=== PATIENT | male | born 1950 | race Caucasian/White ===

== ENCOUNTER → 2021-08-26 07:52 | Outpatient (BNVA) | payer MEDICARE, SELFPAY | PROVIDERS: PCP Internal Medicine; Visit Provider Psychiatry & Neurology Neurology | DX: G20 Parkinson's disease (principal); G47.52 REM sleep behavior disorder; F09 Unspecified mental disorder due to known physiological condition; R13.10 Dysphagia, unspecified | CPT/HCPCS: 99212 ==

== ENCOUNTER 2021-11-28 14:15 | Outpatient (REF) | payer MEDICARE, SELFPAY ==
--- NOTE | ~2021-11-28 | FL_ITS ---
EXAMINATION: FL MODIFIED BARIUM SWALLOW CLINICAL INFORMATION: Recently diagnosed Parkinson's disease with dysphagia. COMPARISON: None TECHNIQUE: Modified barium swallow was performed in lateral fluoroscopy view of the following oral administration of various consistencies of barium by the speech therapist. FINDINGS: On oral administration of thin barium, there is a single episode of laryngeal penetration but no aspiration seen. No retention in valleculae or piriform sinuses. On oral administration of pudding, ground chicken and barium-coated saltine cracker, there is normal propagation of bolus from the oral cavity through the pharynx into the cervical esophagus. No retention of solid food seen in the valleculae or piriform sinuses. No laryngeal penetration or aspiration. FLUOROSCOPY TIME: 1.2 minutes DOSE AREA PRODUCT: 0.861 uGy-m2 (microgray-meter squared) FL/FL barium swallow modified IMPRESSION: Single episode of laryngeal penetration on administration of thin barium. Otherwise, there was normal modified barium swallow exam with other consistencies of food coated with barium.
--- NOTE | 2021-11-29 15:32 | MHC.SL.IMP ---
Date of Plan of Treatment: 11/28/21 Onset of Symptoms/Illness: 11/29/19 Date Treatment Started: 11/28/21 Admitting Diagnosis: Parkinson's Disease Primary Speech & Language Diagnosis: R13.12 Oropharyngeal Phase Dysphagia Reason for Today's Visit: 10680 Modified Barium Swallow Study Pre-evaluation Dietary Consistencies: Regular Pre-evaluation Liquid Consistency: Thin Pre-evaluation Medication Administration: Whole with Liquid Medical History: Modified Barium Swallow Study Fluoroscopic Evaluation of Swallowing Function CPT Code 31191 Evaluation Year: 2021 Reason for Study: Patient reports choking on saliva and liquids. Referring Physician: Suzan Fish MD Evaluating Clinician: Jacinta Ware MA, CCC-INFORMATION SECURITY CONSULTANT Study Number: 1 Patient Name: Hipolito Thompson Status: Outpatient, Ambulatory Age: 71 Gender: Male MEDICAL HISTORY: Parkinson's Disease Allergic rhinitis Back pain Basal cell carcinoma Cognitive disorder Colonic polyp Dysphagia Hyperlipidemia REM behavioral disorder Current (pre-evaluation) Intake/Diet: Route: PO Diet Grade: Regular Liquid Consistencies: Thin Pre-Study Functional Oral Intake Scale (FOIS): 7- Total oral intake with no restrictions Pain: Chronic/Ongoing reported at time of study, Throat, rated 3 on scale 0-10 SUBJECTIVE: Patient is a 71 year old male who was referred for a modified barium swallow study by Suzan Fish MD of [facility] in [place], [place]. Patient attended this exam unaccompanied. Patient reports he was officially diagnosed with Parkinson?s Disease 3-4 months ago, though he has been on medication for 2 years. Patient noticed onset of dysphagia 2 years ago when he would choke on saliva and liquids. Patient also described chest pain when food would ?stick partway down for 30-40 seconds.? Patient rated the pain 2 or 3 on a scale 0 to 10, which would subside when the food went down. Patient reported that he noticed that his medications for Parkinson?s Disease seemed to have reduced these symptoms. He reports that these symptoms occur even less frequently after having COVID 2 months ago. Patient reported having a barium swallow study done 15-20 years ago which showed ?hang up of food.? Oral Motor Exam Facial Symmetry: Symmetrical Mouth Occlusion: Normal Oral-Facial Teeth Characteristics: Intact/Normal Oral-Facial Lip Pucker Description: Normal Oral-Facial Smile (Lips) Description: Normal Oral-Facial Puff Cheeks Description: Normal Tongue Size: Normal Tongue Excursion Description: Normal Tongue Range of Movement Description: Normal Tongue Speed of Movement Description: Normal Tongue Strength of Movement (against opposing pressure): Normal Tongue Movement Characteristics: Normal/Absent Is patient able to manage secretions?: Yes Food and Liquid Trials: Oral Impairment: Lip Closure: Did not test Oral Impairment: Tongue Control During Bolus Hold: 0=Cohesive bolus between tongue to palatal seal Oral Impairment: Bolus Preparation/Mastication: 0=Timely and efficient chewing and mashing Oral Impairment: Bolus Transport/Lingual Motion: 1= Delayed initiation of tongue motion Oral Impairment: Oral Residue: 1=Trace residue lining oral structures Oral Impairment:Initiation of Pharyngeal Swallow: 1=Bolus head in valleculae Pharyngeal Impairment: Soft Palate Elevation: 0=No bolus between soft palate (SP)/pharyngeal wall (PW) Pharyngeal Impairment: Laryngeal Elevation: 0=Complete superior movement of thyroid cartilage (see description) Pharyngeal Impairment: Anterior Hyoid Excursion: 0=Complete anterior movement Pharyngeal Impairment: Epiglottic Movement: 0=Complete inversion Pharyngeal Impairment: Laryngeal Vestibular Closure:: 1=Incomplete: narrow column air/contrast in laryngeal vestibule Pharyngeal Impairment: Pharyngeal Stripping Wave: 0=Present: complete Pharyngeal Impairment: Pharyngeal Contraction: Did not test Pharyngeal Impairment: Pharyngoesophageal Segment Openin=Complete distension and complete duration: no obstruction of flow Pharyngeal Impairment: Tongue Base (TB) Retraction: 2=Narrow column of contrast/air between TB and posterior PW Pharyngeal Impairment: Pharyngeal Residue: 1=Trace residue within or on pharyngeal structures Pharyngeal Impairment: Esophageal Clearance Upright Position: Did not test Impressions and Recommendations Clinical Observations: OBJECTIVE: Time-out: performed at 02:45 Evaluation Start: 02:30; Stop: 02:40 Patient Positioning: Standing Viewing Planes: LATERAL ONLY Contrast: MBSImP? Standardized Protocol using commercially prepared, standardized Barium viscosities, including: Varibar? THIN LIQUID (40% w/v, <15 cps) , Varibar? NECTAR (40% w/v, <150-450 cps) , 1/2 Shortbread Cookie (1 x1 x.25 ) MBSImP ID: [id number] MBSImP Results: Lip closure for intraoral bolus containment could not be assessed due to logistical reasons not related to physiologic impairment. Tongue control during bolus hold maintained a cohesive bolus held between tongue to palate seal. Bolus preparation and mastication resulted in timely and efficient chewing and mashing. Bolus transport/lingual motion demonstrated delayed initiation of tongue motion. Oral residue was a trace, lining oral structures. Initiation of the pharyngeal swallow occurred when the bolus head was in the valleculae. Soft palate elevation resulted in no bolus between the soft palate and the pharyngeal wall. Laryngeal elevation demonstrated complete superior movement of the thyroid cartilage with complete approximation of the arytenoids to the epiglottic petiole. Anterior hyoid excursion demonstrated complete anterior movement. Epiglottic movement resulted in complete inversion. Laryngeal vestibular closure was incomplete, with a narrow column of air/contrast noted within the laryngeal vestibule at the height of the swallow. Pharyngeal stripping wave was present and complete. Pharyngeal contraction could not be determined due to logistical reasons not related to physiologic impairment. Pharyngoesophageal segment opening was completely distended for complete duration with no obstruction of bolus flow. Tongue base retraction allowed a narrow column of contrast or air between the retracted tongue base and the posterior pharyngeal wall. Pharyngeal residue was a trace within or on pharyngeal structures. Esophageal clearance in the upright position could not be assessed due to logistical reasons not related to physiologic impairment. Oral Impairment Score: 2 (absence of score, component 1) Pharyngeal Impairment Score: 3 (absence of score, component 13) Esophageal Impairment Score: --- (absence of score, component 17) Laryngeal Penetration and Aspiration: Neither penetration nor aspiration was observed in today's study with [place]-thick. Penetration was observed in today's study. Thin Contrast entered the airway, remained above the vocal folds, and was ejected from the airway. ASSESSMENT: Clinician Assessment: This exam was conducted by a multidisciplinary team, which included a speech pathologist, radiologist, and blood bank technician. Patient was standing for lateral view. Patient trialed the following liquid and solid consistencies: thin liquid barium by cup, nectar thick liquid barium by cup, pureed solid (mixture applesauce with barium paste), ground solid (mixture chicken salad with barium paste), and regular solid (Bailey Doone cookie coated with barium paste). Tongue control was within functional limits. Patient maintained cohesive bolus between tongue to palatal seal when instructed for bolus hold. There was no premature posterior escape of bolus. Mastication was timely and efficient. Trace lingual residue subsequently cleared. Posterior lingual motion for bolus transport was mildly delayed. Pharyngeal swallow trigger initiated as bolus head reached valleculae. There was no nasopharyngeal reflux. Laryngeal elevation was complete, with complete anterior hyoid excursion and complete epiglottic inversion. There was a single episode of flash penetration as patient took quick, sequential sips of thin liquid. Trace amount of contrast which had pooled in the valleculae entered the airway above the vocal folds between sips. Contrast immediately ejected from airway as patient produced protective cough response. Patient was reminded to take small, individual sips. No aspiration or penetration with subsequent sips of thin liquid. No aspiration or penetration with nectar thick liquid by cup. No aspiration or penetration with solid consistencies. Very trace amount of residue in valleculae and pyriform sinuses spontaneously cleared and considered to be within normal limits. There was no obstruction of flow through pharyngoesophageal segment opening. Liquid Intake Recommendation: Thin Liquid Intake Strategies: Small Sips Dietary Recommendations: Regular Medication Administration: Whole with Liquid Please contact the pharmacy regarding appropriate crushable or liquid drug formulations that are available whenever modified delivery is recommended. Compensatory Strategies Recommended: Sitting Upright (90 deg), Double Swallow, Small Bites and Sips, Alternate Liquids/Solids, Rate of Ingestion Change Supervision during eating and or drinking: None Needed Recommended Treatments: Compens. Strategy Educat. Recommendation for Speech Therapy: Outpatient Speech Therapy Text Comment: cognitive linguistic testing, 1 follow-up for dysphagia PLAN: Intake Recommendations: Route: PO Diet Grade: Regular Liquid Consistencies: Thin Post-Study Functional Oral Intake Scale (FOIS): 7- Total oral intake with no restrictions There was no evidence of aspiration with solids and liquids during this exam. There was a single episode of flash penetration with thin liquid when patient took quick consecutive sips. Good oral and pharyngeal clearance. Recommend 1 f/u w/ INFORMATION SECURITY CONSULTANT for patient education of these findings and recommended aspiration precautions. Patient did mention some cognitive changes secondary to underlying Parkinson?s Disease. He may benefit from a cognitive linguistic evaluation w/ INFORMATION SECURITY CONSULTANT as well. Patient is recommended to resume unmodified diet regular solids with thin liquids with the following strategies: -take small individual sips -avoid consecutive sips or ?chugging? of liquids -ensure upright 90 degree position when eating and drinking -additional dry swallow between sips/bites as needed -take small bites and chew food well Patient is recommended to continue monitoring his dysphagia. If there are any changes or worsening of symptoms, contact PCP, at which point a re-evaluation may be warranted. Suggested Referrals: The patient might benefit from a referral to: Neurology Indication for Referral: continue care The patient might benefit from a referral to: Speech Pathology Indication for Referral: cognitive linguistic evaluation Therapy Recommendations: Therapy will be initiated Frequency per Week: 1 Number of Weeks: 1 Prognosis for Improvement: The prognosis for the patient to meet nutritional needs by mouth is excellent based on degree of impairment. Snf Goals: ? The patient and/or family will participate in further education for swallowing goals. Short Term Goals: ? Guidelines - The patient will comply with/recall the following guidelines/strategies 100% of the time with no cuing: Bolus Volume Change, Rate of Ingestion Change, Liquid Wash, Additional Swallow(s) per Bolus. ? Education - The patient will verbalize/demonstrate understanding of the results of this evaluation, the above recommendations, and the swallowing guidelines. Clinician - Supplemental, Miscellaneous Communication: It is important to note MBSS objective studies are snapshots in time and Patient function might vary with factors such as time of day or concomitant medical conditions. For this reason, the final treatment plan for this patient should rest with their medical care team. Additional recommendations should be considered with the totality of the Patient in mind. Thank for the opportunity to participate in the care of this patient. If you have any questions about the content of this report, please contact the [facility] at [facility]. Education: Education regarding findings from today's study and plans for therapy were provided to Patient only through Verbal Instruction. Understanding was expressed by the Patient only. Conveyor Weigher Operator Clinician/Clinical Fellow: No Supervisory Statement: N/A Speech Language Pathologist: Jacinta Ware M.A., [facility]-INFORMATION SECURITY CONSULTANT
== END 2021-11-28 14:16 | disposition home or self-care (01) ==
LOC: HO.XRAY 14:15
PROVIDERS: Visit Provider Psychiatry & Neurology Neurology
DX: R13.10 Dysphagia, unspecified (principal); G20 Parkinson's disease
CPT/HCPCS: 74230; 92611

== ENCOUNTER → 2021-12-26 07:51 | Outpatient (BNVA) | payer MEDICARE, SELFPAY | PROVIDERS: PCP Internal Medicine; Visit Provider Psychiatry & Neurology Neurology | DX: G20 Parkinson's disease (principal); G47.52 REM sleep behavior disorder; F09 Unspecified mental disorder due to known physiological condition; R13.10 Dysphagia, unspecified | CPT/HCPCS: 99212 ==

== ENCOUNTER → 2022-03-22 14:54 | Outpatient (BNVA) | payer MEDICARE, SELFPAY | PROVIDERS: PCP Internal Medicine; Visit Provider Psychiatry & Neurology Neurology | DX: G20 Parkinson's disease (principal); R13.10 Dysphagia, unspecified; F09 Unspecified mental disorder due to known physiological condition; G47.52 REM sleep behavior disorder | CPT/HCPCS: 99212 ==

== ENCOUNTER → 2022-07-19 09:26 | Outpatient (BNVA) | payer MEDICARE, SELFPAY | PROVIDERS: PCP Internal Medicine; Visit Provider Psychiatry & Neurology Neurology | DX: G20 Parkinson's disease (principal); R13.10 Dysphagia, unspecified; F09 Unspecified mental disorder due to known physiological condition; G47.52 REM sleep behavior disorder; M79.10 Myalgia, unspecified site | CPT/HCPCS: 99212 ==

== ENCOUNTER → 2022-09-19 09:54 | Outpatient (BNVA) | payer MEDICARE, SELFPAY | PROVIDERS: PCP Internal Medicine; Visit Provider Psychiatry & Neurology Neurology | DX: G20 Parkinson's disease (principal); G47.52 REM sleep behavior disorder; F09 Unspecified mental disorder due to known physiological condition; R13.10 Dysphagia, unspecified; M79.10 Myalgia, unspecified site | CPT/HCPCS: 99212 ==

== ENCOUNTER 2023-03-21 07:19 | Outpatient (AMB) | payer MEDICARE, SELFPAY ==
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
[2023-03-21 07:33] VITALS: BP 112/66; PULSE 80; O2SAT 97
== END 2023-03-21 08:07 | disposition home or self-care (01) ==
PROVIDERS: Visit Provider Psychiatry & Neurology Neurology
DX: G20.A1 Parkinson's disease without dyskinesia, without mention of fluctuations (principal); R13.10 Dysphagia, unspecified; R41.89 Other symptoms and signs involving cognitive functions and awareness; G47.52 REM sleep behavior disorder; M79.10 Myalgia, unspecified site
CPT/HCPCS: 99214

== ENCOUNTER → 2023-03-21 07:19 | Outpatient (BNVA) | payer MEDICARE, SELFPAY | PROVIDERS: Visit Provider Psychiatry & Neurology Neurology | DX: G20.C Parkinsonism, unspecified (principal); R13.10 Dysphagia, unspecified; F09 Unspecified mental disorder due to known physiological condition; G47.52 REM sleep behavior disorder; M79.10 Myalgia, unspecified site | CPT/HCPCS: 99212 ==

== ENCOUNTER 2023-10-31 07:56 | Outpatient (AMB) | payer MEDICARE, SELFPAY ==
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
[2023-10-31 08:01] VITALS: BP 126/64; PULSE 84; RESP 16; O2SAT 98; BMI 24.3
== END 2023-10-31 08:39 | disposition home or self-care (01) ==
PROVIDERS: PCP Internal Medicine; Visit Provider Psychiatry & Neurology Neurology
DX: G20.A1 Parkinson's disease without dyskinesia, without mention of fluctuations (principal); R13.10 Dysphagia, unspecified; G72.41 Inclusion body myositis [IBM]; T46.6X5A Adverse effect of antihyperlipidemic and antiarteriosclerotic drugs, initial encounter; G47.52 REM sleep behavior disorder
CPT/HCPCS: 99215; G2211

== ENCOUNTER → 2023-10-31 07:56 | Outpatient (BNVA) | payer MEDICARE, SELFPAY | PROVIDERS: PCP Internal Medicine; Visit Provider Psychiatry & Neurology Neurology | DX: G20.A1 Parkinson's disease without dyskinesia, without mention of fluctuations (principal); G47.52 REM sleep behavior disorder; M79.10 Myalgia, unspecified site; R13.10 Dysphagia, unspecified; F09 Unspecified mental disorder due to known physiological condition | CPT/HCPCS: 99212 ==

== ENCOUNTER 2023-12-03 10:47 | Outpatient (AMB) | payer MEDICARE, SELFPAY ==
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
[2023-12-03 10:53] VITALS: BP 132/72; PULSE 72; RESP 16; BMI 24.3
== END 2023-12-03 11:32 | disposition home or self-care (01) ==
PROVIDERS: PCP Internal Medicine; Visit Provider Psychiatry & Neurology Neurology
DX: G20.A1 Parkinson's disease without dyskinesia, without mention of fluctuations (principal); R13.10 Dysphagia, unspecified; R41.89 Other symptoms and signs involving cognitive functions and awareness; G47.52 REM sleep behavior disorder; T46.6X5D Adverse effect of antihyperlipidemic and antiarteriosclerotic drugs, subsequent encounter; M60.80 Other myositis, unspecified site
CPT/HCPCS: 99214; G2211

== ENCOUNTER → 2023-12-03 10:47 | Outpatient (BNVA) | payer MEDICARE, SELFPAY | PROVIDERS: PCP Internal Medicine; Visit Provider Psychiatry & Neurology Neurology | DX: G20.A1 Parkinson's disease without dyskinesia, without mention of fluctuations (principal); R13.10 Dysphagia, unspecified; F09 Unspecified mental disorder due to known physiological condition; G47.52 REM sleep behavior disorder; M79.10 Myalgia, unspecified site | CPT/HCPCS: 99212 ==

== ENCOUNTER 2023-12-04 07:31 | Outpatient (REF) | payer MEDICARE, SELFPAY ==
--- NOTE | 2023-12-04 08:09 | EMG_ITS ---
Left tibial and peroneal motor studies were performed left superficial peroneal, sural, and median and lateral plantar mix studies were performed. Tibial H-reflex was obtained. A needle examination was performed. 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 MD BENJI Nathan/SAMANTHAL / [phone]
== END 2023-12-04 07:32 | disposition home or self-care (01) ==
LOC: HO.NEURO 07:31
PROVIDERS: Visit Provider Psychiatry & Neurology Neurology
DX: M79.10 Myalgia, unspecified site (principal); M79.605 Pain in left leg; M79.604 Pain in right leg
CPT/HCPCS: 95886; 95910

== ENCOUNTER 2023-12-12 12:21 | Outpatient (AMB) | payer MEDICARE, SELFPAY ==
[2023-12-12 12:33] VITALS: BP 150/70; PULSE 67; BMI 23.6
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
== END 2023-12-12 13:12 | disposition home or self-care (01) ==
PROVIDERS: PCP Internal Medicine; Visit Provider Internal Medicine
DX: M79.10 Myalgia, unspecified site (principal); I44.7 Left bundle-branch block, unspecified
CPT/HCPCS: 93010; 99204

== ENCOUNTER → 2023-12-12 12:21 | Outpatient (BNVA) | payer MEDICARE, SELFPAY | PROVIDERS: PCP Internal Medicine; Visit Provider Internal Medicine | DX: M79.10 Myalgia, unspecified site (principal); I44.7 Left bundle-branch block, unspecified; E78.2 Mixed hyperlipidemia; I65.23 Occlusion and stenosis of bilateral carotid arteries; T50.995A Adverse effect of other drugs, medicaments and biological substances, initial encounter; X58.XXXA Exposure to other specified factors, initial encounter | CPT/HCPCS: 93005; 99202 ==

== ENCOUNTER 2023-12-31 08:52 | Outpatient (REF) | payer MEDICARE, SELFPAY ==
--- NOTE | ~2023-12-31 | US_ITS ---
EXAMINATION: US EXTRACRANIAL CAROTID DUPLEX, BILATERAL CLINICAL INFORMATION: Occlusion and stenosis of bilateral carotid arteries COMPARISON: None available. TECHNIQUE: Real-time ultrasound and Doppler techniques (integrating B-mode 2-D vascular images, Doppler spectral analysis and color-flow Doppler imaging) were utilized to interrogate the extracranial carotid arteries, the vertebral arteries and proximal subclavian arteries bilaterally. The degree of stenosis is determined by criteria similar to NASCET. FINDINGS: Right Side: 1. There is no atherosclerotic plaque seen in the bifurcation/proximal ICA region. 2. The common carotid artery PSV proximally is 133 cm/s and distally 112 cm/s. 3. The proximal internal carotid artery velocities are 97 cm/s systolic and 20 cm/s diastolic. 4. The proximal external carotid artery PSV is 107 cm/s. 5. The vertebral artery shows antegrade flow. 6. The subclavian artery waveforms are normal. Left Side: 1. There is no atherosclerotic plaque seen in the bifurcation/proximal ICA region. 2. The common carotid artery PSV proximally is 132 cm/s and distally 101 cm/s. 3. The proximal internal carotid artery velocities are 113 cm/s systolic and 21 cm/s diastolic. 4. The proximal external carotid artery PSV is 100 cm/s. 5. The vertebral artery shows antegrade flow. 6. The subclavian artery waveforms are normal. Incidentally noted solid vascular right thyroid nodule measuring 1.3 x 1.1 x 2.4 cm, taller than wide, hypoechoic, lobulated margins. US/US carotid duplex BI IMPRESSION: 1. RIGHT: Normal right internal carotid artery without atherosclerotic plaque or hemodynamically significant stenosis. 2. LEFT: Normal left internal carotid artery without atherosclerotic plaque or hemodynamically significant stenosis. 3. TR 5 right thyroid nodule incidentally noted. Recommend further evaluation with dedicated thyroid ultrasound.
== END 2023-12-31 08:53 | disposition home or self-care (01) ==
LOC: HO.HMGCX 08:52
PROVIDERS: PCP Internal Medicine; Visit Provider Internal Medicine
DX: I65.23 Occlusion and stenosis of bilateral carotid arteries (principal)
CPT/HCPCS: 93880

== ENCOUNTER 2024-01-01 08:22 | Outpatient (AMB) | payer MEDICARE, SELFPAY ==
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
[2024-01-01 08:28] VITALS: BP 128/68; PULSE 76; RESP 16; BMI 23.6
== END 2024-01-01 09:04 | disposition home or self-care (01) ==
PROVIDERS: PCP Internal Medicine; Visit Provider Psychiatry & Neurology Neurology
DX: G20.B1 Parkinson's disease with dyskinesia, without mention of fluctuations (principal); F09 Unspecified mental disorder due to known physiological condition; R13.10 Dysphagia, unspecified; G47.52 REM sleep behavior disorder; M79.10 Myalgia, unspecified site
CPT/HCPCS: 99214; G2211

== ENCOUNTER → 2024-01-01 08:22 | Outpatient (BNVA) | payer MEDICARE, SELFPAY | PROVIDERS: PCP Internal Medicine; Visit Provider Psychiatry & Neurology Neurology | DX: G20.A1 Parkinson's disease without dyskinesia, without mention of fluctuations (principal); G47.52 REM sleep behavior disorder; M79.10 Myalgia, unspecified site; R13.10 Dysphagia, unspecified | CPT/HCPCS: 99212 ==

== ENCOUNTER 2024-01-10 10:21 | Outpatient (REF) | payer MEDICARE, SELFPAY ==
--- NOTE | ~2024-01-10 | US_ITS ---
EXAMINATION: US THYROID CLINICAL INFORMATION: Nontoxic single thyroid nodule. COMPARISON: None available. TECHNIQUE: Linear transducer grayscale and color Doppler examination with attention to the region of the thyroid. FINDINGS: SIZE: Measurements of the thyroid lobes and nodules are given in sagittal, anteroposterior and transverse dimensions respectively. Right Thyroid Lobe: 5.23 x 1.94 x 1.44 cm, volume 7.62 mL. Parenchyma: The gland echotexture is homogeneous. Thyroid vascularity is normal. Left Thyroid Lobe: 4.15 x 1.29 x 1.35 cm, volume 3.8 mL. Parenchyma: The gland echotexture is homogeneous. Thyroid vascularity is normal. Isthmus: 0.36 cm in maximum AP dimension. Estimated total number of nodules greater than or equal to 1 cm: 1. Watch Parts Grinder nodules are described as follows: 1. Location: Right mid. Size: 2.2 x 1.4 x 0.90 cm, volume 1.5 mL. Nodule characteristics: Composition: Solid (2). Echogenicity: Hypoechoic (2). Shape: Taller than wide (3). Margins: Smooth (0). Echogenic Foci: None (0). ACR TI-RADS total points: 7 ACR TI-RADS category: 5 NODES: No lymphadenopathy is seen in the tissue surrounding the thyroid gland. US/US thyroid IMPRESSION: A dominant nodule in the right mid lower pole 2.2 cm TR 5 nodule, . Given its size and ACR TI-RADS category, this nodule meets the ACR criteria recommendation for FNA. Findings being called to the referring provider's office.TC ACR TI-RADS RECOMMENDATION REFERENCE: Ultrasound-guided fine-needle aspiration, followup ultrasound, no further follow up. * TR1 (0 point) and TR2 (2 points): No FNA or follow up. * TR3 (3 points): FNA if more than or equal to 2.5 cm in maximum dimension, followup ultrasound in 1, 3 and 5 years if 1.5 to 2.4 cm in maximum dimension. * TR4 (4-6 points): FNA if more than or equal to 1.5 cm in maximum dimension, followup ultrasound in 1, 2, 3 and 5 years if 1 to 1.4 cm in maximum dimension. * TR5 (more than or equal to 7 points): FNA if more than or equal to 1 cm in maximum dimension, followup ultrasound every year for 5 years if 0.5 to 0.9 cm in maximum dimension. * TR3, TR4 or TR5 nodules that are below the size threshold for followup receive no follow up.
== END 2024-01-10 10:22 | disposition home or self-care (01) ==
LOC: HO.HMGCX 10:21
PROVIDERS: PCP Internal Medicine; Visit Provider Internal Medicine
DX: E04.1 Nontoxic single thyroid nodule (principal)
CPT/HCPCS: 76536

== ENCOUNTER → 2024-01-25 07:42 | Outpatient (REF) | payer MEDICARE, SELFPAY ==
--- NOTE | ~2024-01-25 | NM_ITS ---
Lexiscan Myocardial perfusion study Indication: Left bundle branch block Technique: The patient was brought in for a Lexiscan perfusion study on 01/25/2024 and was injected 0.4 mg of Lexiscan intravenously. Within a minute of this injection 25 mCi of sestamibi was given intravenously. Images were obtained using the SPECT gamma camera interlaced with the gating device. Images were obtained in supine position. Resting perfusion study was performed on 01/28/2024. Patient was administered 25 mCi of sestamibi intravenously at rest. Images were then obtained in supine position. Images were processed with the software and compared side to side in short axis, horizontal long axis and vertical long axis views. Total DLP 79mGy-cm. Findings: Raw acquisition reviewed. The stress perfusion study showed diminished tracer uptake along the inferior wall. There is improvement with CT attenuation correction suggestive of diaphragmatic attenuation artifact. The gated study shows normal LV systolic function with calculated LVEF of 67%. LV cavity is normal in size. The gated study shows normal wall thickening and contraction of segments. Resting study shows diminished tracer uptake along the inferior wall. There is improvement with CT attenuation correction suggestive of diaphragmatic attenuation artifact. Gating at rest reveals normal wall motion with ejection fraction at 72%. The findings are consistent with no clear reversible defects. Fixed inferior defect that could be from diaphragmatic attenuation artifact. NM/NE cardiolite stress test Impression: 1. Myocardial perfusion imaging study shows no clear evidence of any ischemia or infarction. Fixed inferior defect that could be from diaphragmatic attenuation artifact. 2. Gated LVEF is 67% during stress and 72% during rest. Correlate with echocardiogram. 3. Transient ischemic dilatation not present. EKG component of the test reported separately.
--- NOTE | 2024-01-25 07:46 | CA_ITS ---
Transthoracic Echocardiogram Patient (Last, First, Middle): Hipolito Thompson R Gender: Male Date of : 1950 Age: 73 Procedure Date: 01/25/2024 Procedure Type: Transthoracic Echocardiogram Location: OP Height: 182.88 cm Weight: 79.38 kg BSA: 2.01 m2 Heart Rate: 65 bpm BP: 124 / 76 mmHg [employer] Dies: TO Referring MD: Da Pereira MD Aircraft Armament Mechanic: Nick Aguiar MD Symptoms: I44.7 - Left bundle-branch block, unspecified Study Quality: Adequate ECG Rhythm: Sinus Conclusions: - 1. Low normal LV ejection fraction 50-55% with grade 1 diastolic dysfunction 2. Normal cardiac valvular Doppler 3. Mildly dilated ascending aorta at 3.7 cm 4. No gross pericardial effusion Findings Left Ventricle Normal left ventricular cavity size. There is normal left ventricular wall thickness. The left ventricular systolic function is low normal. The visually estimated ejection fraction is between 50-55%. There is paradoxical septal motion consistent with a left bundle branch block. Spectral Doppler is indicative of an impaired relaxation filling pattern. E/E prime ratio is <8, consistent with normal filling pressures. Evidence suggests grade I (mild) diastolic dysfunction. Right Ventricle Normal right ventricular cavity size and systolic function. Atria Both atria are normal in size. Aortic Valve Normal aortic valve structure and function. There is no aortic valve stenosis. There is no aortic valve regurgitation. Mitral Valve Normal mitral valve structure and function. There is trace mitral valve regurgitation. There is no mitral valve stenosis. Pulmonic Valve The pulmonic valve is likely normal. Tricuspid Valve Normal tricuspid valve structure. Tricuspid regurgitation envelope is inadequate for calculation of right ventricular systolic pressure. Normal right atrial pressure. Great Vessels The pulmonary artery was not well visualized. There is mild dilatation of the ascending aorta measuring 3.70 cm. Venous The inferior vena cava is normal in size and collapses greater than 50% with inspiration. Pericardium/Pleural There is no evidence of pericardial effusion. Prior Study Comparison No prior study available for comparison. Measurements 2D Linear Measurements IVSd: 0.96 0.6-0.9/0.6-1.0 cm LVIDd: 4.25 3.9-5.3/4.2-5.9 cm LVIDd Index: 2.11 2.4-3.2/2.2-3.1 cm/m2 LVIDs: 2.85 2.0-3.6 cm LVPWd: 0.84 0.7-1.1 cm LA Diam: 3.20 2.7-3.8/3.0-4.0 cm LAIDs Index: 1.59 1.5-2.3 cm/m2 LV Mass: 150.92 67-162/88-224 g LV Mass Index: 75.09 43-95/49-115 g/m2 LVOT Diam: 2.10 3.0+(-)1.3 cm 2D Systolic Function EF 4C: 51.50 >55% EF 2C: 50.30 >55% EF BiP: 50.30 >55% Mitral Valve MV Pk E: 0.42 MV PK A: 0.67 MV Decel Time: 230.00 E/A: 0.60 E'Lateral: 5.22 E'Medial: 3.70 E/E' Med: 11.50 E/E' Lat: 8.10 PHT: 67.00 MVA PHT: 3.28 Decel [place]: 1.84 Aortic Valve AoV Pk Glynn: 1.23 AoV Mn Glynn: 0.81 AoV VTI: 0.26 AoV Pk Grad: 6.00 Aov Mn Grad: 3.00 BITA Cont.VTI: 2.53 LVOT LVOT Pk Glynn: 0.91 LVOT Mn Glynn: 0.55 LVOT VTI: 0.19 LVOT Pk Grad: 3.00 LVOT Mn Grad: 1.00 LVOT Diam: 2.10 LVOT Area: 3.46 Diastolic Function MV Pk E: 0.42 MV Pk A: 0.67 E/A: 0.60 E'Medial: 3.70 E/E' Med: 11.50 E' Laterial: 5.22 E/E' Lat: 8.10 Right Ventricle TAPSE (mm): 20.40 TVS' Glynn: 11.40 Tricuspid Valve RA Press: 3.00 Great Vessels Aorta Sinus of Valsalva: 3.40 2.0-3.5 cm Ao Asc: 3.70 2.1-3.4 cm Ao Arch: 2.70 Updated in Other Vendor System with Status of Final Nick Aguiar MD electronically signed on 01/26/2024 2:05:40 PM with status of Final
--- NOTE | 2024-01-25 07:46 | CA_ITS ---
Acquisition Time: 2024-01-25 09:05:36 Total Exercise Time: 00:02:00 Test Indications: LBBB Medications: SEE H Protocol: LEXISCAN Max HR: 111 BPM 76% of Pred: 146 BPM Max BP: 150/080 mmHG Max Work Load: 1.0 METS Pharmacological stress test with Lexiscan injection while sitting, without anginal symptoms, without arrhythmais, with normotensive response to injection, with nondiagnoisitic EKGs. Aminophylline 75mg IVP given to reverse Lexiscan. Nuclear images pending. Test reviewed with Dr. Aguiar Referred By: Da Pereira Overread By: Ursula Gates
== END ==
LOC: HO.CARD 07:42
PROVIDERS: PCP Internal Medicine; Visit Provider Internal Medicine
DX: I44.7 Left bundle-branch block, unspecified (principal)
CPT/HCPCS: 78452; 93017; 93306; A9500; J0280; J2785

== ENCOUNTER → 2024-01-25 07:46 | Outpatient (BNV) | payer MEDICARE, SELFPAY | PROVIDERS: PCP Internal Medicine; Visit Provider Internal Medicine Cardiovascular Disease | DX: I44.7 Left bundle-branch block, unspecified (principal) | CPT/HCPCS: 78452; 93016; 93018; 93320; 93325; 93350 ==

== ENCOUNTER 2024-02-08 08:44 | Outpatient (AMB) | payer MEDICARE, SELFPAY ==
[2024-02-08 08:54] VITALS: BP 132/76; PULSE 90; BMI 24.6
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
== END 2024-02-08 10:51 | disposition home or self-care (01) ==
PROVIDERS: PCP Internal Medicine; Visit Provider Student in an Organized Health Care Education/Training Program
DX: E04.1 Nontoxic single thyroid nodule (principal)
CPT/HCPCS: 99204

== ENCOUNTER → 2024-02-08 08:44 | Outpatient (BNVA) | payer MEDICARE, SELFPAY | PROVIDERS: PCP Internal Medicine; Visit Provider Student in an Organized Health Care Education/Training Program | DX: E04.1 Nontoxic single thyroid nodule (principal) | CPT/HCPCS: 99202 ==

== ENCOUNTER 2024-02-11 07:30 | Outpatient (REF) | payer MEDICARE, SELFPAY ==
[2024-02-11 08:49] LABS: Alanine Aminotransferase 32 U/L (0-40); Alkaline Phosphatase 83 U/L (39-117); Aspartate Amino Transferase 21 U/L (5-37); Bilirubin Direct 0.2 mg/dL (0.0-0.5); Bilirubin Total 0.5 mg/dL (0.0-1.0); Cholesterol 224 mg/dL (<200); HDL Cholesterol 48 mg/dL (>40); LDL Cholesterol Calculated 145 mg/dL (<100); Total Protein 6.7 g/dL (6.5-8.0); Triglycerides 159 mg/dL (<150)
[2024-02-11 09:03] LABS: Thyroid Stimulating Hormone 1.53 uIU/mL (0.32-4.0)
[2024-02-11 09:06] LABS: Free T4 (Free Thyroxine) 0.98 ng/dL (0.71-1.85)
[2024-02-12 11:38] LABS: LDL Cholesterol Direct 152 mg/dL (<100)
[2024-02-16 11:48] LABS: CK-BB None Detected (None Detected); CK-MB 1 % (<5); CK-MM 96 % (95-100); Creatine Kinase Isoenzyme Itrp MACRO CK TYPE 1; Creatine Kinase,Total,Serum 281 U/L (44-196)
== END 2024-02-11 07:31 | disposition home or self-care (01) ==
LOC: HO.LAB 07:30
PROVIDERS: Absent Provider Student in an Organized Health Care Education/Training Program; PCP Internal Medicine; Visit Provider Internal Medicine
DX: E04.1 Nontoxic single thyroid nodule (principal); E78.5 Hyperlipidemia, unspecified; M79.10 Myalgia, unspecified site; E78.2 Mixed hyperlipidemia
CPT/HCPCS: 36415; 80061; 80076; 82552; 83721; 84439; 84443

== ENCOUNTER 2024-02-27 07:32 | Outpatient (REF) | payer MEDICARE, SELFPAY ==
--- NOTE | 2024-02-27 08:32 | PM.PROC ---
Brief Operative Note Date of procedure: 02/27/24 Pre-op diagnosis: right lower pole thyroid 2.2 cm nodule Post-op diagnosis: same Procedure: THYROID FINE NEEDLE ASPIRATION PROCEDURE NOTE ? PROCEDURE PERFORMED: Ultrasound-guided FNA of thyroid nodule ? OPERATORS: Dr. Rita Haynes ? INDICATION: 2.2 cm right-sided thyroid nodule; FNA performed to assess for malignancy ? DESCRIPTION OF PROCEDURE: The indications for FNA (to assess for malignancy) were reviewed with the patient in detail. Potential complications (e.g., bleeding, infection, damage to local structures, absence of clear diagnosis after FNA) were reviewed. Alternatives to FNA including conservative observation or surgery were described. The patient understood and agreed to proceed. This was documented by the signing of the written informed consent form. A time-out was performed to confirm the patient's identity and the site of planned FNA. The nodule of interest was identified using ultrasound (14 MHz linear array probe). The site of FNA was then draped in the usual fashion and carefully cleaned and prepared using chloraprep. The skin and subcutaneous tissue at the previously-identified site of needle insertion was iced and sprayed with numbing spray Under ultrasound guidance, 5__ passes were performed using a 1.5-inch, 22-gauge needle, and sample was obtained via capillary action. The needle tip was clearly visualized to be within the nodule at the time of sampling for _4_ of 5__ passes The patient tolerated the procedure well. There were no immediate complications. A small adhesive bandage was applied, and the patient was advised to take acetaminophen (rather than NSAIDs) for any discomfort and to report any signs of inflammation/infection or marked swelling. IMPRESSION: Technically successful ultrasound-guided fine needle aspiration of 2.2cm right-sided thyroid nodule. PLAN: The patient was advised that I will provide follow-up regarding the cytology result and any subsequent plans. Riat Haynes MD Condition: stable Disposition: same day
== END 2024-02-27 07:33 | disposition home or self-care (01) ==
LOC: HO.US 07:32
PROVIDERS: PCP Internal Medicine; Visit Provider Internal Medicine Endocrinology, Diabetes & Metabolism
DX: E04.1 Nontoxic single thyroid nodule (principal)
CPT/HCPCS: 10005; 88173

== ENCOUNTER → 2024-02-27 07:32 | Outpatient (BNV) | payer MEDICARE, SELFPAY | PROVIDERS: PCP Internal Medicine; Visit Provider Student in an Organized Health Care Education/Training Program | DX: E04.1 Nontoxic single thyroid nodule (principal) | CPT/HCPCS: 10005 ==

== ENCOUNTER 2024-03-10 13:17 | Outpatient (AMB) | payer MEDICARE, SELFPAY ==
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
[2024-03-10 13:21] VITALS: BP 122/56; PULSE 75; BMI 24.3
== END 2024-03-10 13:52 | disposition home or self-care (01) ==
PROVIDERS: PCP Internal Medicine; Visit Provider Internal Medicine
DX: M79.10 Myalgia, unspecified site (principal); I44.7 Left bundle-branch block, unspecified
CPT/HCPCS: 99214

== ENCOUNTER → 2024-03-10 13:17 | Outpatient (BNVA) | payer MEDICARE, SELFPAY | PROVIDERS: PCP Internal Medicine; Visit Provider Internal Medicine | DX: M79.10 Myalgia, unspecified site (principal); I44.7 Left bundle-branch block, unspecified | CPT/HCPCS: 99212 ==

== ENCOUNTER 2024-03-12 13:51 | Outpatient (AMB) | payer MEDICARE, SELFPAY ==
[2024-03-12 13:57] VITALS: BP 150/70; PULSE 69; BMI 24.4
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
== END 2024-03-12 14:23 | disposition home or self-care (01) ==
PROVIDERS: PCP Internal Medicine; Visit Provider Student in an Organized Health Care Education/Training Program
DX: E04.1 Nontoxic single thyroid nodule (principal)
CPT/HCPCS: 99213

== ENCOUNTER → 2024-03-12 13:51 | Outpatient (BNVA) | payer MEDICARE, SELFPAY | PROVIDERS: PCP Internal Medicine; Visit Provider Student in an Organized Health Care Education/Training Program | DX: E04.1 Nontoxic single thyroid nodule (principal) | CPT/HCPCS: 99212 ==

== ENCOUNTER 2024-04-08 10:51 | Outpatient (AMB) | payer MEDICARE, SELFPAY ==
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
[2024-04-08 11:15] VITALS: BP 142/70; PULSE 76; RESP 16; O2SAT 98; BMI 24.6
== END 2024-04-08 12:04 | disposition home or self-care (01) ==
PROVIDERS: PCP Internal Medicine; Visit Provider Student in an Organized Health Care Education/Training Program
DX: M79.10 Myalgia, unspecified site (principal)
CPT/HCPCS: 99203

== ENCOUNTER → 2024-04-08 10:51 | Outpatient (BNVA) | payer MEDICARE, SELFPAY | PROVIDERS: PCP Internal Medicine; Visit Provider Student in an Organized Health Care Education/Training Program | DX: M79.10 Myalgia, unspecified site (principal) | CPT/HCPCS: 99202 ==

== ENCOUNTER 2024-04-24 07:50 | Outpatient (AMB) | payer MEDICARE, SELFPAY ==
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
[2024-04-24 07:56] VITALS: BMI 24.5
== END 2024-04-24 08:28 | disposition home or self-care (01) ==
LOC: HO.HSMS 07:51
PROVIDERS: PCP Internal Medicine; Visit Provider Psychiatry & Neurology Neurology
DX: G20.A1 Parkinson's disease without dyskinesia, without mention of fluctuations (principal); R13.10 Dysphagia, unspecified; F09 Unspecified mental disorder due to known physiological condition; G47.52 REM sleep behavior disorder; M79.10 Myalgia, unspecified site; G62.9 Polyneuropathy, unspecified
CPT/HCPCS: 99214; G2211

== ENCOUNTER → 2024-04-24 07:50 | Outpatient (BNVA) | payer MEDICARE, SELFPAY | PROVIDERS: PCP Internal Medicine; Visit Provider Psychiatry & Neurology Neurology | DX: G20.A1 Parkinson's disease without dyskinesia, without mention of fluctuations (principal); R13.10 Dysphagia, unspecified; G47.52 REM sleep behavior disorder; M79.10 Myalgia, unspecified site; G62.9 Polyneuropathy, unspecified; F09 Unspecified mental disorder due to known physiological condition | CPT/HCPCS: 99212 ==

== ENCOUNTER 2024-07-14 08:22 | Outpatient (AMB) | payer MEDICARE, SELFPAY ==
[2024-07-14 08:25] VITALS: BP 110/72; BMI 25.0
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
--- OUTSIDE RECORDS SUMMARY | 2024-07-14 12:40 | XMS_ITS | Clinical Summary ---
Author Organization [facility] Address [address] [place] [address] Care Team Providers Care Box Toe Buffer Name Role Phone Charlie Castillo MD Primary Care Provider [phone] Allergies Active Allergy Reactions Criticality Noted Date Comments Lactose 07/13/2014 Diarrhea, abdominal cramping Linaclotide Diarrhea 09/03/2020 Nsaids (Non-Steroidal Anti-Inflammatory Drug) Other 08/31/2011 constipation Pollen Extracts 11/10/2020 Medications Medication Sig Dispensed Refills Start Date End Date Status atorvastatin (LIPITOR) 10 mg tablet Take 1 tablet (10 mg total) by mouth 1 (one) time each day. 06/20/2023 Active fluticasone propionate (FLONASE) 50 mcg/actuation nasal spray INSTILL 1 TO 2 SPRAYS INTO EACH NOSTRIL ONCE DAILY NEEDED 12/08/2021 Active coenzyme Q-10 10 mg capsule Take 30 capsules (300 mg total) by mouth. Active clonazePAM (KlonoPIN) 0.5 mg tablet Take 1 tablet (0.5 mg total) by mouth. Active melatonin 10 mg tablet Take by mouth at bedtime. Active carbidopa-levodopa (SINEMET) 25-100 mg per tablet 1 tablet. 03/16/2020 Active xagtmwpg-dgge-vxexehm -dextrose 2.45 gram powder in packet Take by mouth 1 (one) time each day. Active polyethylene glycol (PEG) 17 gram/dose oral powder Take 17 g by mouth. Active cholecalciferol (VITAMIN D-3) 25 mcg (1,000 unit) tablet Take by mouth 1 (one) time each day. Active vitamin D3-vitamin K2, MK4, 1,000-100 unit-mcg tablet Take 1 tablet by mouth 1 (one) time each day. Active pediatric multivitamin tablet Take 1 split tablet by mouth 1 (one) time each day. Active aspirin 81 mg EC tablet Take by mouth. Active omeprazole (PriLOSEC) 20 mg capsuleIndications:He artburn TAKE 1 CAPSULE BY MOUTH EVERY DAY 90 capsule 1 04/23/2024 Active Active Problems Problem Noted Date Diagnosed Date History of basal cell carcinoma 08/22/2023 History of meniscal tear 08/22/2023 History of colonic polyps 08/22/2023 Parkinson's disease 07/09/2023 Memory deficit 12/27/2021 Overview (08/22/2023): [facility] following with neuropsych Osteoarthritis 11/16/2021 Overview (08/22/2023): Tricompartmental osteoarthritis on right knee seen on MRI 11/05/2021. Obstructive sleep apnea 10/08/2020 Overview (08/22/2023): [facility] Polysomnogram: Date 09/17/2020; Wt 177#; BMI 24; SE 86%; SM 86%; REM 13%; RDI 8 (AHI 6), REM (RDI 11 - AHI 7), Central apneas 9; Obstructive apneas 25; Mixed apneas 0; hypopneas 8; RERAs 12; average oxygen saturation 93% (lowest 89% - without saturations <88% for 5% or more of study); PLMs 0. - Obstructive Sleep Apnea - mild overall and mild in REM; mostly obstructive apneas with central apneas and hypopneas; without sleep related hypoventilation by [address] Fish ordering/treatment physician. Lytic bone lesion of left femur 04/10/2019 Decreased libido 02/08/2016 Dysphagia 12/14/2011 Overview (08/22/2023): Dr. Trevizo. 11/27 - normal upper endoscopy. Esophageal biopsies normal. Allergic rhinitis 04/19/2011 Overview (08/22/2023): gets allergy shots Abnormal EKG 04/16/2009 Overview (08/22/2023): 03/2009 Incomplete RBBB, Holter with single pvc's, occasional couplets 2006- transient Lbbb with ETT at [facility]- negative for ischemia Echo 03/2009 Normal Mixed hyperlipidemia 11/04/2008 Vitiligo 12/14/2006 Hypoglycemia 07/05/2005 Lumbago 07/04/2005 Overview (08/22/2023): intermitt.back pain Chest pain, unspecified 07/04/2005 Overview (08/22/2023): nuclear stress test 10/04/04 negative subsequently negative cardiac cath 2011 Immunizations Name Administration Dates Next Due Influenza Quadravalent, 0.5m l (Fluzone High-dose) 65yo and older 04/05/2022,03/23/2021 Influenza trivalent, 0.5mL ( Fluzone High-dose) 65yo and older 05/24/2023 Influenza, Unspecified 04/13/2014 Pfizer (ages 12 & older) Bivalent, COVID-19 12/0 12/2022 Pfizer SARS-CoV-2 COVID-19, mRNA, LNP-S, preservative free 08/03/2020,07/12/2020 Pneumococcal conjugate 13 va lent (Prevnar 13, PCV13) 2mo and older 08/03/2015 Pneumococcal polysaccharide 23 valent (Pneumovax 23) 2yo and older 08/11/2016 Td Tetanus diptheria (Tdvax) 7yo and older 10/15 Tdap Tetanus diptheria acell ular pertussis (Boostrix; Adacel) 7yo and older 03/28/2012 Zoster Live 03/24/2010 Zoster recombinant (Shingrix) 19yo and older Surgical History Surgery Date Site/Laterality Comments APPENDECTOMY PROCEDURE: HISTORICAL APPENDECTOMY SHOULDER SURGERY 2004 AND 2008 PROCEDURE: CT UNLISTED PROCEDURE SHOULDER; COMMENT: LEFT AND RIGHT - impingement symptoms OTHER SURGICAL HISTORY 1999 PROCEDURE: CT SIGMOIDOSCOPY FLX NDSC US XM CATARACT EXTRACTION PROCEDURE: HISTORICAL CATARACT REMOVAL COLONOSCOPY 05-09-2006 PROCEDURE: HISTORICAL COLONOSCOPY; COMMENT: Dr Jacobo - 1.5 cm sigmoid T.A. polyp; repeat in 3 years COLONOSCOPY 11-02-2009 PROCEDURE: HISTORICAL COLONOSCOPY; COMMENT: Dr Doran - normal; repeat in 5 years ESOPHAGOGASTRODUODENOSCOPY 12/14/2011 PROCEDURE: CT EGD TRANSORAL BIOPSY SINGLE/MULTIPLE; COMMENT: visually normal, esophageal bx: normal. FOOT SURGERY PROCEDURE: HISTORICAL FOOT SURGERY; COMMENT: bunion, bilateral OTHER SURGICAL HISTORY PROCEDURE: HISTORICAL CA BASAL CELL; COMMENT: BCC 11/28 back (nodular) COLONOSCOPY 2014 PROCEDURE: HISTORICAL COLONOSCOPY; COMMENT: dr jacobo repeat in 2018 HERNIA REPAIR 2019 Bilateral PROCEDURE: LAPAROSCOPY, INGUINAL HERNIA REPAIR; COMMENT: Dr. Schaffer HERNIA REPAIR 2018 PROCEDURE: HISTORICAL HERNIA REPAIR/ING Medical History Medical History Date Comments Herpes zoster without mentio n of complication 2003 DX:Herpes zoster without men tion of complication Prostatitis, unspecified DX:Pros tatitis, unspecified Lumbago DX:Lumbago; COMM ENT: intermitt.back pain Chest pain, unspecified DX:Chest pain, unspecified; COMMENT: nuclear stress test 10/04/04 negative Hypoglycemia, unspecified 07/05/2005 DX:Hyp oglycemia, unspecified Vitiligo 12/14/2006 DX:Vitiligo Allergic rhinitis 04/19/2011 DX:Allergic rh initis History of basal cell carcinoma 12/11/2012 DX:History of basal cell carcinoma; COMMENT: BCC 11/28 back (nodular) S/P colonoscopy 2016 DX:S/P colonosco py; COMMENT: Positive for adenomatous polyp Actinic keratosis, hx of DX:Acti keith keratosis, hx of Constipation DX:Constipation Family history of colon cancer D X:Family history of colon cancer Family History Medical History Relation Name Comments Arthritis Brother 1 Arthritis Father Diabetes Father Heart attack Father Heart failure Father Mental illness Mother Alzheimer's Arthritis Sister 1 Coronary artery disease Sister 2 CABG Hypertension Sister 2 Colon cancer Uncle 1 5-6 maternal un cles and a cousin Pancreatic cancer Uncle 2 Relation Name Status Comments Brother 1 Alive htn cholestyero l CAD BLADDER CANCER Brother 2 Alive htn cholesterol Father (Age 91) DM AND HEA RT CABG Mother (Age 89) DEMENTIA Sister 1 Alive cabg cholestero l Sister 2 (Age 2 childhood) Uncle 1 Uncle 2 Alive Social History Tobacco Use Types Packs/Day Years Used Date Smoking Tobacco: Never Smokeless Tobacco: Never Alcohol Use Standard Drinks/Week Comments Yes 0.8 (1 standard drink = 0.6 oz p ure alcohol) Sex and Gender Information Value Date Recorded Sex Assigned at Not on file Gender Identity Not on file Sexual Orientation Not on file Obstetrics History Last Filed Vital Signs Vital Sign Reading Time Taken Comments Blood Pressure 120/62 03/13/2024 9:26 AM EDT Pulse 72 03/13/2024 9:26 AM EDT Temperature - - Respiratory Rate - - Oxygen Saturation - - Inhaled Oxygen Concentration - - Weight 80.3 kg (177 lb) 03/13/2024 9:26 AM EDT Height 182.9 cm (6') 03/13/2024 9:26 AM EDT Body Mass Index 24.01 03/13/2024 9:26 AM EDT Plan of Treatment Upcoming Encounters Date Type Department Care Team (Late st Contact Info) Description 09/10/2024 9:30 AM EDT Office Visit Adult Medicine [address] [address] Charlie Castillo MD [address] [place] [address] Health Maintenance Due Date Last Done Comments Zoster Vaccines (2 of 2) 01/26/2022 12/01/2021, 12/2009 DTaP,Tdap,and Td Vaccines (3 - Td or Tdap) 03/28/2022 03/28/2012, 10/15/2002 Cholesterol Screening (Lipid Panel) 05/27/2022 Colorectal Cancer Screening: Stool Based Tests (FOBT/FIT) 05/27/2022 Depression Screening 05/27/2022 Falls Risk Assessment 05/27/2022 Hepatitis C Screening 05/27/2022 Medicare Annual Wellness Visit 05/27/2022 Social Influencers of Health Screening 05/27/2022 COVID-19 Vaccine ( season) 2024 05/24/2023, 08/03/2020, 07/12/2020 RSV Immunization Patients 60+ Years Old (1 - 1-dose 75+ series) 2024 Pneumococcal Vaccine: 65+ Years Completed 08/11/2016, 08/03/2015 Influenza Vaccine Completed 04/15/2024, , 04/05/2022, Additional history exists HIB Vaccines Aged Out No longer eligi ble based on patient's age to complete this topic HPV Vaccines Aged Out No longer eligi ble based on patient's age to complete this topic Hepatitis A Vaccines Aged Out No long er eligible based on patient's age to complete this topic Hepatitis B Vaccines Aged Out No long er eligible based on patient's age to complete this topic IPV Vaccines Aged Out No longer eligi ble based on patient's age to complete this topic MMR Vaccines Aged Out No longer eligi ble based on patient's age to complete this topic Meningococcal ACWY Vaccine Aged Out N o longer eligible based on patient's age to complete this topic RSV Immunization Patients Under 20 months Aged Out No longer eligible based on patient's age to complete this topic Varicella Vaccines Aged Out No longer eligible based on patient's age to complete this topic Care Teams Box Toe Buffer Relationship Specialty Start Date End Date Charlie Castillo MD [address] [place] [id number] PCP - General Internal Medicine 05/13/21
--- OUTSIDE RECORDS SUMMARY | 2024-07-14 12:40 | XMS_ITS | Clinical Summary ---
Author Organization [facility] Address [address] [place] [address] Care Team Providers Care Water And Fire Technician Name Role Phone Unavailable Primary Care Provider Unavailabl e Social History Tobacco Use Types Packs/Day Years Used Date Smoking Tobacco: Never Assessed Sex and Gender Information Value Date Recorded Sex Assigned at Not on file Gender Identity Not on file Sexual Orientation Not on file Plan of Treatment Health Maintenance Due Date Last Done Comments Hepatitis C Virus Screening 1950 DTaP/Tdap/Td Vaccines (1 - Tdap) 1968 Pneumococcal Vaccines 50+ (1 of 1 - PCV) 10/07/1999 Zoster (Shingles) Vaccine (1 of 2) 10/07/1999 COVID-19 Vaccine ( - 2023-2 5 season) 2024 RSV Vaccine 60 years and old er and Patients (1 - 1-dose 75+ series) 2024 Hepatitis B Vaccines Aged Out No long er eligible based on patient's age to complete this topic
--- OUTSIDE RECORDS SUMMARY | 2024-07-14 12:40 | XMS_ITS | Encounter Summary ---
Author Organization [facility] Address [address] [place] [id number] Care Team Providers Care Wire Weaver Helper Name Role Phone Unavailable Primary Care Provider Unavailabl e Encounter Details Date Type Department Care Team (Late st Contact Info) Description 11/02/2021 Erroneous Encounter [facility] CONVERSION DEPT [address] [place] [address] Provider, MD Camila Social History Tobacco Use Types Packs/Day Years Used Date Smoking Tobacco: Never Assessed Sex and Gender Information Value Date Recorded Sex Assigned at Not on file Gender Identity Not on file Sexual Orientation Not on file documented as of this encounter Plan of Treatment Not on file documented as of this encounter Visit Diagnoses Not on filedocumented in this encounter
--- OUTSIDE RECORDS SUMMARY | 2024-07-14 12:40 | XMS_ITS | Encounter Summary ---
Author Organization [facility] Address [address] [place] [id number] Care Team Providers Care Campus Recruiting Internship Name Role Phone Unavailable Primary Care Provider Unavailabl e Encounter Details Date Type Department Care Team (Late st Contact Info) Description 09/08/2021 Erroneous Encounter [facility] CONVERSION DEPT [address] [place] [address] Provider, MD Camila Social History [...]
== END 2024-07-14 09:14 | disposition home or self-care (01) ==
PROVIDERS: PCP Internal Medicine; Visit Provider Psychiatry & Neurology Neurology
DX: G20.A1 Parkinson's disease without dyskinesia, without mention of fluctuations (principal); F09 Unspecified mental disorder due to known physiological condition; R13.10 Dysphagia, unspecified; G47.52 REM sleep behavior disorder; M79.10 Myalgia, unspecified site; G62.9 Polyneuropathy, unspecified
CPT/HCPCS: 99214; G2211

== ENCOUNTER → 2024-07-14 08:22 | Outpatient (BNVA) | payer MEDICARE, SELFPAY | PROVIDERS: PCP Internal Medicine; Visit Provider Psychiatry & Neurology Neurology | DX: G20.A1 Parkinson's disease without dyskinesia, without mention of fluctuations (principal); R13.10 Dysphagia, unspecified; G47.52 REM sleep behavior disorder; M79.10 Myalgia, unspecified site; G62.9 Polyneuropathy, unspecified | CPT/HCPCS: 99212 ==

== ENCOUNTER 2024-09-08 09:05 | Outpatient (AMB) | payer MEDICARE, SELFPAY ==
[2024-09-08 09:07] VITALS: BP 130/60; PULSE 69; BMI 24.9
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
== END 2024-09-08 09:26 | disposition home or self-care (01) ==
LOC: HO.HCS 09:05
PROVIDERS: PCP Internal Medicine; Visit Provider Internal Medicine
DX: M79.10 Myalgia, unspecified site (principal); I44.7 Left bundle-branch block, unspecified
CPT/HCPCS: 99214; G2211

== ENCOUNTER → 2024-09-08 09:05 | Outpatient (BNVA) | payer MEDICARE, SELFPAY | PROVIDERS: PCP Internal Medicine; Visit Provider Internal Medicine | DX: M79.10 Myalgia, unspecified site (principal); I44.7 Left bundle-branch block, unspecified; Z95.1 Presence of aortocoronary bypass graft | CPT/HCPCS: 99212 ==

== ENCOUNTER 2024-09-09 08:54 | Outpatient (REF) | payer MEDICARE, SELFPAY ==
[2024-09-09 10:19] LABS: Cholesterol 150 mg/dL (<200); HDL Cholesterol 45 mg/dL (>40); LDL Cholesterol Calculated 78 mg/dL (<100); Triglycerides 139 mg/dL (<150)
[2024-09-13 10:58] LABS: CK-BB None Detected (None Detected); CK-MB 0 % (<5); CK-MM 100 % (95-100); Creatine Kinase,Total,Serum 152 U/L (19-278)
== END 2024-09-09 08:55 | disposition home or self-care (01) ==
LOC: HO.LAB 08:54
PROVIDERS: PCP Internal Medicine; Visit Provider Internal Medicine
DX: E78.5 Hyperlipidemia, unspecified (principal); M62.82 Rhabdomyolysis
CPT/HCPCS: 36415; 80061; 82552

== ENCOUNTER 2024-10-21 08:18 | Outpatient (AMB) | payer MEDICARE, SELFPAY ==
[2024-10-21 08:24] VITALS: BP 128/78; BMI 24.5
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
--- OUTSIDE RECORDS SUMMARY | 2024-10-21 08:32 | XMS_ITS | Encounter Summary ---
Author Organization [facility] Address [address] [place] [id number] Care Team Providers Care Creative Services Coordinator Name Role Phone Unavailable Primary Care Provider Unavailabl e Encounter Details Date Type Department Care Team (Late st Contact Info) Description 11/02/2021 Erroneous Encounter [facility] [address] [place] [address] Provider, MD Camila Social History Tobacco Use Types Packs/Day Years Used Date Smoking Tobacco: Never Assessed Sex and Gender Information Value Date Recorded Sex Assigned at Not on file Legal Sex Male 10:15 AM EDT Gender Identity Not on file Sexual Orientation Not on file documented as of this encounter Plan of Treatment Not on file documented as of this encounter Visit Diagnoses Not on filedocumented in this encounter
--- OUTSIDE RECORDS SUMMARY | 2024-10-21 08:33 | XMS_ITS | Clinical Summary ---
Author Organization [facility] Address [address] [place] [address] Care Team Providers Care Cello Teacher Name Role Phone Unavailable Primary Care Provider [...]
--- OUTSIDE RECORDS SUMMARY | 2024-10-21 08:33 | XMS_ITS | Clinical Summary ---
Author Organization [address] Address [address] [facility] KASSIE Zamora [address] Phone Care Team Providers Care Mountain Or Glacier Guide Name Role Phone Charlie Castillo MD Primary Care Provider [phone] Allergies Active Allergy Reactions Criticality Noted Date Comments Lactose 07/13/2014 Diarrhea, abdominal cramping Linaclotide Diarrhea 09/03/2020 Nsaids (Non-Steroidal Anti-Inflammatory Drug) Other 08/31/2011 constipation Pollen Extracts 11/10/2020 Medications fluticasone propionate (FLONASE) 50 mcg/actuation nasal spray INSTILL 1 TO 2 SPRAYS INTO EACH NOSTRIL ONCE DAILY NEEDED 2 Active coenzyme Q-10 10 mg capsule Take 30 capsules (300 mg total) by mouth. Active clonazePAM (KlonoPIN) 0.5 mg tablet Take 1 tablet (0.5 mg total) by mouth. Active melatonin 10 mg tablet Take by mouth at bedtime. Active carbidopa-levodop a (SINEMET) 25-100 mg per tablet 1 tablet. 0 Active ubaxyykb-rxsd-uue nichelle-dextrose 2.45 gram powder in packet Take by [...] by mouth. Active omeprazole (PriLOSEC) [address] capsuleIndication s:Heartburn TAKE 1 CAPSULE BY MOUTH EVERY DAY 90 capsule 1 4 Active atorvastatin (LIPITOR) 10 mg tablet Take 1 tablet (10 mg total) by mouth 1 (one) time each day. 90 tablet 5 Active rOPINIRole (REQUIP) 0.5 mg tablet Take 1 tablet (0.5 mg total) by mouth 3 (three) times a day. Active Active Problems Problem Noted Date Diagnosed Date Thyroid nodule 09/10/2024 Overview (09/10/2024): discoverred by carotid US for evaluation by cardiology, follows with Dr. Jules Ashby at [facility] Myalgia 09/10/2024 Overview (09/10/2024): believed to be relaed to Parkinson's per neurology History of basal cell carcinoma 08/22/2023 History of meniscal tear 08/22/2023 History of colonic polyps 08/22/2023 Parkinson's disease (CMS/HCC V24, CMS/HCC V28) 0 07/09/2023 Memory deficit 12/27/2021 Overview (08/22/2023): MCI following with neuropsych Osteoarthritis 11/16/2021 Overview (08/22/2023): Tricompartmental osteoarthritis on right knee seen on MRI 11/05/2021. Obstructive sleep apnea 10/08/2020 Overview (08/22/2023): [facility] Polysomnogram: Date 09/17/2020; Wt 177#; [...] couplets 2006- transient Lbbb with ETT at [facility]- negative for ischemia Echo 03/2009 Normal Mixed hyperlipidemia 11/04/2008 Vitiligo 12/14/2006 Hypoglycemia 07/05/2005 Lumbago 07/04/2005 Overview (08/22/2023): intermitt.back pain Chest pain, unspecified 07/04/2005 Overview (08/22/2023): nuclear stress test 10/04/04 negative subsequently negative cardiac cath 2011 Encounters Date Type Department Care Team Description 09/10/2024 9:30 AM EDT Office Visit Adult [address] [address] Charlie Castillo MD Allergic rhinitis, unspecified seasonality, unspecified trigger (Primary Dx); Memory deficit; Mixed hyperlipidemia; Parkinson's disease without dyskinesia, unspecified whether manifestations fluctuate ([facility] V24, [facility] V28); Thyroid nodule; Myalgia; Low back pain with sciatica, sciatica laterality unspecified, unspecified back pain laterality, unspecified chronicity; Abnormal EKG from Last 3 Months Immunizations Name Administration Dates Next Due Influenza Quadravalent, 0.5m l (Fluzone High-dose) 65yo and older 04/05/2022,03/23/2021 Influenza trivalent, 0.5mL ( Fluzone High-dose) 65yo and older 05/24/2023 Influenza, Unspecified 04/13/2014 Pfizer (ages 12 & older) Bivalent, COVID-19 12/2022 Pfizer SARS-CoV-2 COVID-19, mRNA, LNP-S, preservative [...] APPENDECTOMY SHOULDER SURGERY 2004 AND 2008 PROCEDURE: TX UNLISTED PROCEDURE SHOULDER; COMMENT: LEFT AND RIGHT - impingement symptoms OTHER SURGICAL HISTORY 1999 PROCEDURE: TX SIGMOIDOSCOPY FLX NDSC US XM CATARACT EXTRACTION PROCEDURE: HISTORICAL CATARACT REMOVAL COLONOSCOPY 05-09-2006 PROCEDURE: HISTORICAL COLONOSCOPY; COMMENT: Dr Jacobo - 1.5 cm sigmoid T.A. polyp; repeat in 3 years COLONOSCOPY 11-02-2009 PROCEDURE: HISTORICAL COLONOSCOPY; COMMENT: Dr Doran - normal; repeat in 5 years ESOPHAGOGASTRODUODENOSCOPY 12/14/2011 PROCEDURE: TX EGD TRANSORAL BIOPSY SINGLE/MULTIPLE; COMMENT: visually normal, esophageal bx: normal. FOOT SURGERY PROCEDURE: HISTORICAL FOOT SURGERY; COMMENT: bunion, bilateral OTHER SURGICAL HISTORY PROCEDURE: HISTORICAL CA BASAL CELL; COMMENT: BCC 11/28 back (nodular) COLONOSCOPY 2014 PROCEDURE: HISTORICAL COLONOSCOPY; COMMENT: dr jacobo repeat in 2018 HERNIA REPAIR 2019 Bilateral PROCEDURE: LAPAROSCOPY, INGUINAL HERNIA REPAIR; COMMENT: Dr. Schaffer HERNIA REPAIR 2019 PROCEDURE: HISTORICAL HERNIA REPAIR/ING Medical History Medical [...] Date Smoking Tobacco: Never Smokeless Tobacco: Never Tobacco Cessation:Counseling Given: Not Answered Alcohol Use Standard Drinks/Week Comments Yes 0.8 (1 standard drink = 0.6 oz p ure alcohol) Housing Instability Answer Date Recorde d Are you worried that in the next 2 months you may not have stable housing? No 09/04/2024 Food Access & Nutrition Answer Date Rec orded Do you have access to a vari ety of food including fruits and vegetables? Yes 09/04/2024 Access to Healthcare Answer Date Record ed Within the last 3 months, ho w many times did you visit the emergency department for your medical care? 0 09/04/2024 Health Literacy Answer Date Recorded How often do you need to hav e someone help you when you read instructions, pamphlets, or other written material from your doctor or pharmacy? Never 09/04/2024 Caregiver: How often do you need to have someone help you when you read instructions, pamphlets, or other written material from your doctor or pharmacy? Not on file 09/04/2024 Financial Risk Answer Date Recorded How hard is it for you to pa y for the very basics like food, housing, medical care, and air conditioning / heating? Not very hard 09/04/2024 Transportation Answer Date Recorded Has the lack of transportati on kept you from meetings, work, or from getting things needed for daily living? No Has the lack of transportati on kept you from medical appointments or from getting medications? No 09/04/2024 Social Isolation Answer Date Recorded How often do you feel lonely or isolated from th ose around you? Never 09/04/2024 Food Risk Answer Date Recorded Within the past 12 months we worried whether our food would run out before we got money to buy more. Never true 09/04/2024 Within the past 12 months th e food we bought just didn't last and we didn't have money to get more. Never true 09/04/2024 Dependent Care Answer Date Recorded Do you need help finding or paying for care for your loved ones. For example, early childhood teacher assistant or elderly care for an older adult? No 09/04/2024 Education Answer Date Recorded Do you think completing more education or training, like finishing a GED, going to college, or learning a trade, would be helpful for you? No 09/04/2024 Employment and Income Answer Date Recor ded During the last four weeks, have you been actively looking for work? No 09/04/2024 Living Situation Answer Date Recorded What is your living situation? 0 09/04/2024 Sex and Gender Information Value Date Recorded Sex Assigned at Male 07/21/2024 9:28 AM EST Legal Sex Male 12:20 AM EST Gender Identity Male 07/21/2024 9:28 AM EST Sexual Orientation Straight 07/21/2024 9: 28 AM EST Obstetrics History Last Filed Vital Signs Vital Sign Reading Time Taken Comments Blood Pressure 122/66 09/10/2024 9:32 AM EDT Pulse 80 09/10/2024 9:32 AM EDT Temperature 36.1 ??C (97 ??F) 09/10/2024 9:32 AM EDT Respiratory Rate 20 09/10/2024 9:32 AM EDT Oxygen Saturation - - Inhaled Oxygen Concentration - - Weight 83.5 kg (184 lb) 09/10/2024 9:32 AM EDT Height 182.9 cm (6') 09/10/2024 9:32 AM EDT Body Mass Index 24.95 09/10/2024 9:32 AM EDT Plan of Treatment Upcoming Encounters Date Type Department Care Team (Late st Contact Info) Description 04/13/2025 9:30 AM EDT Office Visit Adult Medicine [facility] [address] [place] [address] Charlie Castillo MD [address] [place] [address] Health Maintenance Due Date Last Done Comments DTaP,Tdap,and Td Vaccines (3 - Td or Tdap) 03/28/2022 03/28/2012, 10/15/2002 Cholesterol Screening (Lipid Panel) 05/27/2022 Colorectal Cancer Screening: Stool Based Tests (FOBT/FIT) 05/27/2022 Hepatitis C Screening 05/27/2022 Medicare Annual Wellness Visit 05/27/2022 RSV Immunization Adult Patients (1 - 1-dose 75+ series) 2024 COVID-19 Vaccine (8 - Pfizer risk season) 2024 04/15/2024, 05/24/2023, 04/05/2022, Additional history exists Depression Screening 09/04/2025 09/04/2024 Social Influencers of Health Screening 09/04/2025 09/04/2024 Falls Risk Assessment 09/10/2025 09/10/2024 Pneumococcal Vaccine: 50+ Years Completed 08/11/2016, 08/03/2015 Zoster Vaccines Completed 12/01/2021, 06/19, 03/24/2010 Influenza Vaccine Completed 04/15/2024, , 04/05/2022, Additional [...] patient's age to complete this topic Meningococcal B Vaccine Aged Out No l onger eligible based on patient's age to complete this topic RSV Immunization Patients Under 20 months Aged Out No longer eligible based on patient's age to complete this topic Varicella Vaccines Aged Out No longer eligible based on patient's age to complete this topic Procedures Procedure Name Priority Date/Time Associated Diagnosis Comments EXTERNAL CLINICAL LAB 09/09/2024 EXTERNAL CLINICAL LAB 09/09/2024 from Last 3 Months Results * External clinical lab (09/09/2024) Only the most recent of2 resultswithin the time period is included. Provider [facility] LAB BLOOD ORDERABLES Fin al Result from Last 3 Months Insurance MEDICARE [facility] Care Teams Mountain Or Glacier Guide Relationship Specialty Start Date End Date Charlie Castillo MD [address] [place] [address] PCP - General Internal Medicine 05/13/21
--- OUTSIDE RECORDS SUMMARY | 2024-10-21 08:33 | XMS_ITS | Encounter Summary ---
Author Organization [facility] Address [address] [place] [id number] Care Team Providers Care Beam Dyer Operator Name Role Phone Unavailable Primary Care Provider Unavailabl e Encounter Details Date Type Department Care Team (Late st Contact Info) Description 09/08/2021 Erroneous Encounter [facility] CONVERSION DEPT [address] [place] [address] Provider, MD Camila Social History [...]
== END 2024-10-21 08:58 | disposition home or self-care (01) ==
LOC: HO.HSMS 08:18
PROVIDERS: PCP Internal Medicine; Visit Provider Psychiatry & Neurology Neurology
DX: G20.A1 Parkinson's disease without dyskinesia, without mention of fluctuations (principal); F09 Unspecified mental disorder due to known physiological condition; R13.10 Dysphagia, unspecified; G47.52 REM sleep behavior disorder; M79.10 Myalgia, unspecified site; G62.9 Polyneuropathy, unspecified
CPT/HCPCS: 99214; G2211

== ENCOUNTER → 2024-10-21 08:18 | Outpatient (BNVA) | payer MEDICARE, SELFPAY | PROVIDERS: PCP Internal Medicine; Visit Provider Psychiatry & Neurology Neurology | DX: G20.A1 Parkinson's disease without dyskinesia, without mention of fluctuations (principal); M79.10 Myalgia, unspecified site; R13.10 Dysphagia, unspecified; F09 Unspecified mental disorder due to known physiological condition; G47.52 REM sleep behavior disorder; G62.9 Polyneuropathy, unspecified | CPT/HCPCS: 99212 ==

== ENCOUNTER → 2024-10-27 07:41 | Outpatient (REF) | payer MEDICARE, SELFPAY ==
--- NOTE | 2024-10-27 07:43 | CA_ITS ---
Transthoracic Echocardiogram Patient (Last, First, Middle): Hipolito Thompson R Gender: Male Date of : 1950 Age: 74 Procedure Date: 10/27/2024 Procedure Type: Transthoracic Echocardiogram Location: OP Height: 182.88 cm Weight: 79.83 kg BSA: 2.02 m2 Heart Rate: 69 bpm BP: 128 / 74 mmHg Classification Control Clerk: SUZIE Referring MD: Da Pereira MD Electrician Wiring: Nick Aguiar MD Symptoms: I44.7 - Left bundle-branch block, unspecified Study Quality: Adequate ECG Rhythm: Sinus Conclusions: - 1. Low normal LV ejection fraction of 50-55% with impaired relaxation filling pattern 2. Normal cardiac valvular Dopplers 3. Mildly dilated ascending aorta at 3.7 cm 4. No gross pericardial effusion Findings Left Ventricle Normal left ventricular cavity size. There is normal left ventricular wall thickness. The left ventricular systolic function is low normal. The visually estimated ejection fraction is between 50-55%. There is paradoxical septal motion consistent with a left bundle branch block. Spectral Doppler is indicative of an impaired relaxation filling pattern. E/E prime ratio is between 8 and 15 consistent with indeterminate filling pressures. Right Ventricle Normal right ventricular cavity size and systolic function. Atria Both atria are normal in size. There is no evidence of interatrial shunt. Aortic Valve Normal aortic valve structure and function. There is no aortic valve stenosis. There is no aortic valve regurgitation. Mitral Valve Normal mitral valve structure and function. There is trace mitral valve regurgitation. There is no mitral valve stenosis. Pulmonic Valve The pulmonic valve is likely normal. There is trace pulmonic valve regurgitation. Tricuspid Valve Normal tricuspid valve structure. There is trace tricuspid valve regurgitation. The right ventricular systolic pressure is normal. The right ventricular systolic pressure is 28 mmHg. Normal right atrial pressure. There is no evidence of pulmonary hypertension. Great Vessels The pulmonary artery was not well visualized. There is mild dilatation of the ascending aorta measuring 3.70 cm. Venous The inferior vena cava is normal in size and collapses greater than 50% with inspiration. Pericardium/Pleural There is no evidence of pericardial effusion. Prior Study Comparison No significant change compared to prior study dated: 01/25/2024. Measurements 2D Linear Measurements IVSd: 1.20 0.6-0.9/0.6-1.0 cm LVIDd: 3.72 3.9-5.3/4.2-5.9 cm LVIDd Index: 1.84 2.4-3.2/2.2-3.1 cm/m2 LVIDs: 2.96 2.0-3.6 cm LVPWd: 0.56 0.7-1.1 cm LA Diam: 2.90 2.7-3.8/3.0-4.0 cm LAIDs Index: 1.44 1.5-2.3 cm/m2 LV Mass: 117.99 67-162/88-224 g LV Mass Index: 58.41 43-95/49-115 g/m2 LVOT Diam: 2.30 3.0+(-)1.3 cm 2D Systolic Function EF 4C: 52.60 >55% EF 2C: 58.60 >55% EF BiP: 54.60 >55% Mitral Valve MV Pk E: 0.55 MV PK A: 0.75 MV Decel Time: 216.00 E/A: 0.70 E'Lateral: 3.92 E'Medial: 3.48 E/E' Med: 15.90 E/E' Lat: 14.10 PHT: 63.00 MVA PHT: 3.49 Decel Heard: 2.55 Aortic Valve AoV Pk Glynn: 1.03 AoV Pk Grad: 4.00 BITA: 3.65 LVOT LVOT Pk Glynn: 0.86 LVOT Mn Glynn: 0.61 LVOT VTI: 0.17 LVOT Pk Grad: 3.00 LVOT Mn Grad: 2.00 LVOT Diam: 2.30 LVOT Area: 4.15 Diastolic Function MV Pk E: 0.55 MV Pk A: 0.75 E/A: 0.70 E'Medial: 3.48 E/E' Med: 15.90 E' Laterial: 3.92 E/E' Lat: 14.10 Right Ventricle TAPSE (mm): 21.20 TVS' Glynn: 11.60 Tricuspid Valve TR Pk Glynn: 2.48 TR Pk Grad: 25.00 RA Press: 3.00 RVSP: 28.00 Great Vessels Aorta Sinus of Valsalva: 3.10 2.0-3.5 cm Ao Asc: 3.70 2.1-3.4 cm Ao Arch: 2.50 Ao Desc: 1.70 Pulmonary Valve PV Pk Glynn: 1.01 Peak PV Grad: 4.00 Updated in Other Vendor System with Status of Final Nick Aguiar MD electronically signed on 10/28/2024 12:12:06 PM with status of Final
--- OUTSIDE RECORDS SUMMARY | 2024-10-27 07:43 | XMS_ITS | Clinical Summary ---
Author Organization [address] Address [address] [facility] [place] [address] Phone Care Team Providers Care Orthotic And Prosthetic Technician Name Role Phone Charlie Castillo MD Primary Care Provider [phone] Allergies Active Allergy Reactions Criticality Noted Date Comments Lactose 07/13/2014 Diarrhea, abdominal cramping Linaclotide Diarrhea 09/03/2020 Nsaids (Non-Steroidal Anti-Inflammatory Drug) Other 08/31/2011 constipation Pollen Extracts 11/10/2020 Medications fluticasone propionate (FLONASE) 50 mcg/actuation nasal spray INSTILL 1 TO 2 SPRAYS INTO EACH NOSTRIL ONCE DAILY NEEDED 12/09/19 22 Active coenzyme Q-10 10 mg capsule Take 30 capsules (300 mg total) by mouth. Active clonazePAM (KlonoPIN) 0.5 mg tablet Take 1 tablet (0.5 mg total) by mouth. Active melatonin 10 mg tablet Take by mouth at bedtime. Active carbidopa-levodo pa (SINEMET) 25-100 mg per tablet 1 tablet. 03/16/20 20 Active bqmvrrhz-nuks-cx cchar-dextrose 2.45 gram powder in packet Take by [...] mouth. Active omeprazole (PriLOSEC) [address] Burton ns:Heartburn TAKE 1 CAPSULE BY MOUTH EVERY DAY 90 capsule 1 04/23/20 24 Active rOPINIRole (REQUIP) 0.5 mg tablet Take 1 tablet (0.5 mg total) by mouth 3 (three) times a day. Active atorvastatin (LIPITOR) 10 mg tablet TAKE 1 TABLET BY MOUTH 1 TIME EACH DAY. 90 tablet 1 10/22/19 25 Active atorvastatin (LIPITOR) 10 mg tablet Take 1 tablet (10 mg total) by mouth 1 (one) time each day. 90 tablet 07/21/19 25 025 Discontinued Active Problems Problem Noted Date Diagnosed Date Thyroid nodule 09/10/2024 Overview (09/10/2024): discoverred by carotid US for evaluation by cardiology, follows with Dr. Jules Ashby at [facility] Myalgpr 09/10/2024 Overview (09/10/2024): believed to be relaed to Parkinson's per neurology History of basal cell carcinoma 08/22/2023 History of meniscal tear 08/22/2023 History of colonic polyps 08/22/2023 Parkinson's disease ([facility] V24, 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 Obstructive sleep apnea 10/08/2020 Overview (08/22/2023): [facility] Polysomnogram: Date 09/17/2020; Wt 177#; [...] couplets 2006- transient Lbbb with ETT at [facility]- negative for ischemia Echo 03/2009 Normal Mixed hyperlipidemia 11/04/2008 Vitiligo 12/14/2006 Hypoglycemia 07/05/2005 Lumbago 07/04/2005 Overview (08/22/2023): intermitt.back pain Chest pain, unspecified 07/04/2005 Overview (08/22/2023): nuclear stress test 10/04/04 negative subsequently negative cardiac cath 2011 Encounters Date Type Department Care Team Description 09/10/2024 9:30 AM EDT Office Visit Adult Medicine [address] [phone] Charlie Castillo MD Allergic rhinitis, unspecified seasonality, unspecified trigger (Primary Dx); Memory deficit; Mixed hyperlipidemia; Parkinson's disease without dyskinesia, unspecified whether manifestations fluctuate (CMS/HCC V24, CMS/HCC V28); Thyroid nodule; Myalgia; Low back pain [...] APPENDECTOMY SHOULDER SURGERY 2004 AND 2008 PROCEDURE: NE UNLISTED PROCEDURE SHOULDER; COMMENT: LEFT AND RIGHT - impingement symptoms OTHER SURGICAL HISTORY 1999 PROCEDURE: NE SIGMOIDOSCOPY FLX NDSC US XM CATARACT EXTRACTION PROCEDURE: HISTORICAL CATARACT REMOVAL COLONOSCOPY 05-09-2006 PROCEDURE: HISTORICAL COLONOSCOPY; COMMENT: Dr Jacobo - 1.5 cm sigmoid T.A. polyp; repeat in 3 years COLONOSCOPY 11-02-2009 PROCEDURE: HISTORICAL COLONOSCOPY; COMMENT: Dr Doran - normal; repeat in 5 years ESOPHAGOGASTRODUODENOSCOPY 12/14/2011 PROCEDURE: NE EGD TRANSORAL BIOPSY SINGLE/MULTIPLE; COMMENT: visually normal, [...] DX:History of basal cell carcinoma; COMMENT: BCC / back (nodular) S/P colonoscopy 2016 DX:S/P colonosco [...] your loved ones. For example, early childhood educator aide or elderly care for an older adult? [...] 9:30 AM EDT Office Visit Adult Medicine [facility] [address] [place] [address] Charlie Castillo MD [address] [place] [address] Health Maintenance Due Date Last Done Comments [...] of2 resultswithin the time period is included. us Provider [facility] BLOOD ORDERABLES Fin al Result from Last 3 Months Insurance MEDICARE [facility] Care Teams Orthotic And Prosthetic Technician Relationship Specialty Start Date End Date Charlie Castillo MD [address] [place] [address] PCP - General Internal Medicine 05/13/21
--- OUTSIDE RECORDS SUMMARY | 2024-10-27 07:43 | XMS_ITS | Encounter Summary ---
Author Organization [facility] Address [address] [place] [address] Care Team Providers Care Export Specialist Name Role Phone Unavailable Primary Care Provider Unavailabl e Encounter Details Date Type Department Care Team (Late st Contact Info) Description 11/02/2021 Erroneous Encounter [facility] CONVERSION DEPT [address] [place] [address] Provider, MD Camila Social History [...]
--- OUTSIDE RECORDS SUMMARY | 2024-10-27 07:43 | XMS_ITS | Encounter Summary ---
Author Organization [facility] Address [address] [place] [address] Care Team Providers Care Principal Network Architect Name Role Phone Unavailable Primary Care Provider Unavailabl e Encounter Details Date Type Department Care Team (Late st Contact Info) Description 09/08/2021 Erroneous Encounter [facility] CONVERSION DEPT [address] [place] [address] Provider, MD Camila Social History [...]
--- OUTSIDE RECORDS SUMMARY | 2024-10-27 07:43 | XMS_ITS | Clinical Summary ---
Author Organization [facility] Address [address] [place] [address] Care Team Providers Care Thermoplastic Technician Name Role Phone Unavailable Primary Care [...]
== END ==
LOC: HO.CARD 07:41
PROVIDERS: PCP Internal Medicine; Visit Provider Internal Medicine
DX: I44.7 Left bundle-branch block, unspecified (principal)
CPT/HCPCS: 93306

== ENCOUNTER → 2024-10-27 07:43 | Outpatient (BNV) | payer MEDICARE, SELFPAY | PROVIDERS: PCP Internal Medicine; Visit Provider Internal Medicine Cardiovascular Disease | DX: I34.0 Nonrheumatic mitral (valve) insufficiency (principal) | CPT/HCPCS: 93306 ==

== ENCOUNTER 2025-01-07 08:44 | Outpatient (REF) | payer MEDICARE, SELFPAY ==
--- OUTSIDE RECORDS SUMMARY | 2025-01-07 09:01 | XMS_ITS | Clinical Summary ---
Author Organization [address] Address [address] [facility] [place] [address] Phone Care Team Providers Care It Support Consultant Name Role Phone Charlie Castillo MD Primary Care Provider [phone] Allergies Active Allergy Reactions Criticality Noted Date [...] mg per tablet 1 tablet. 0 Active msesgpgk-wdxr-fnq nichelle-dextrose 2.45 gram powder in packet Take [...] mg EC tablet Take by mouth. Active rOPINIRole (REQUIP) 0.5 mg tablet Take 1 tablet (0.5 mg total) by mouth 3 (three) times a day. Active atorvastatin (LIPITOR) 10 mg tablet TAKE 1 TABLET BY MOUTH 1 TIME EACH DAY. 90 tablet 1 5 Active docusate sodium (COLACE) 100 mg capsule TAKE 1 CAPSULE BY MOUTH TWICE A DAY 60 capsule 11 5 Active omeprazole (PriLOSEC) [address] capsuleIndication s:Heartburn TAKE 1 CAPSULE BY MOUTH EVERY DAY 90 capsule 1 5 Active Active Problems Problem Noted Date Diagnosed Date Thyroid nodule 09/10/2024 Overview (09/10/2024): discoverred by carotid US for evaluation by cardiology, follows with Dr. 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 Obstructive sleep apnea 10/08/2020 Overview (08/22/2023): [facility] Polysomnogram: Date 09/17/2020; Wt [...] couplets 2006- transient Lbbb with ETT at [facility]- negative for ischemia Echo 03/2009 Normal [...] Pfizer (ages 12 & older) Bivalent, COVID-19 1212/2022 Pfizer SARS-CoV-2 COVID-19, mRNA, LNP-S, preservative free [...] APPENDECTOMY SHOULDER SURGERY 2004 AND 2008 PROCEDURE: DE UNLISTED PROCEDURE SHOULDER; COMMENT: LEFT AND RIGHT - impingement symptoms OTHER SURGICAL HISTORY 1999 PROCEDURE: DE SIGMOIDOSCOPY FLX NDSC US XM CATARACT EXTRACTION PROCEDURE: HISTORICAL CATARACT REMOVAL COLONOSCOPY 05-09-2006 PROCEDURE: HISTORICAL COLONOSCOPY; COMMENT: Dr Jacobo - 1.5 cm sigmoid T.A. polyp; repeat in 3 years COLONOSCOPY 11-02-2009 PROCEDURE: HISTORICAL COLONOSCOPY; COMMENT: Dr Doran - normal; repeat in 5 years ESOPHAGOGASTRODUODENOSCOPY 12/14/2011 PROCEDURE: DE EGD TRANSORAL BIOPSY SINGLE/MULTIPLE; COMMENT: visually normal, [...] care for your loved ones. For example, child development teacher or elderly care for an older adult? [...] 80 09/10/2024 9:32 AM EDT Temperature 36.1 C (97 F) 09/10/2024 9:32 AM EDT Respiratory Rate 20 09/10/2024 9:32 AM EDT Oxygen Saturation - - Inhaled Oxygen Concentration - - Weight 83.5 kg (184 lb) 09/10/2024 9:32 AM EDT Height 182.9 cm (6') 09/10/2024 9:32 AM EDT Body Mass Index 24.95 09/10/2024 9:32 AM EDT Plan of Treatment Upcoming Encounters Date Type Department Care Team (Late st Contact Info) Description 01/08/2025 8:40 AM EDT Office Visit Gastroenterology - [place] 175 [facility] 175 [facility] [address] [place] [id number] Lupe Beebe NP 175 [facility] [address] [place] [address] 04/13/2025 9:30 AM EDT Office Visit Adult Medicine [facility] [address] [place] [address] Charlie Castillo MD [address] [place] [address] Health Maintenance Due Date Last Done Comments DTaP,Tdap,and Td Vaccines (3 - Td or Tdap) 03/28/2022 03/28/2012, 10/15/2002 Cholesterol Screening (Lipid Panel) 05/27/2022 Colorectal Cancer Screening: Stool Based Tests (FOBT/FIT) 05/27/2022 Hepatitis C Screening 05/27/2022 Medicare Annual Wellness Visit 05/27/2022 RSV Immunization Adult Patients (1 - 1-dose 75+ series) 2024 COVID-19 Vaccine (8 - Pfizer risk 2023- season) 2024 04/15/2024, 05/24/2023, 04/05/2022, Additional history exists Influenza Vaccine (#1) 2025 , 05/24/2023, 04/05/2022, Additional history exists Social Influencers of Health Screening 09/04/2025 09/04/2024 Falls Risk Assessment 09/10/2025 09/10/2024 Pneumococcal Vaccine: 50+ Years Completed 08/11/2016, 08/03/2015 Zoster Vaccines Completed 12/01/2021, 06/19, 03/24/2010 Depression Screening Completed 09/04/2024 HIB Vaccines Aged Out No longer eligi [...] on patient's age to complete this topic Insurance MEDICARE [facility] Care Teams It Support Consultant Relationship Specialty Start Date End Date Charlie Castillo MD [address] [place] [address] PCP - General Internal Medicine 05/13/21
--- OUTSIDE RECORDS SUMMARY | 2025-01-07 09:01 | XMS_ITS | Encounter Summary ---
Author Organization [facility] Address [address] [place] [address] Care Team Providers Care Steam Gigger Name Role Phone Unavailable Primary Care Provider Unavailabl e Encounter Details Date Type Department Care Team (Late st Contact Info) Description 11/02/2021 Erroneous Encounter [facility] CONVERSION DEPT [address] [place] [address] Provider, MD Camila Social History [...]
--- OUTSIDE RECORDS SUMMARY | 2025-01-07 09:01 | XMS_ITS | Patient Health Record ---
Author Organization [facility] [place] [place] Address [address] [facility] [place] [address] Care Team Providers Care Spiritual Care Coordinator Name Role Phone Hipolito Martin MD Primary Care Provider Ben Mcgraw Unavailable [phone] Allergies Allergen (clinical drug ingredient) Drug/Non Drug Allergy documented on EMR Reaction Allergy Type Onset Date Status ibuprofen Ibuprofen constipation Drug Allergy Acti ve Reason For Referral No Information Medications Medication SIG (Take, Route, Fr equency, Duration) Notes Start Date End Date Status Silvadene 1 % 1 application to aff ected area Externally Once a day; Duration: 30 days 02/05/2014 Active Aspirin 81mg Once a day Active Crestor Active Diclofenac Sodium Ac tive Social History Tobacco Use: Social History Observation Description Date Details (start date - stop date) Never Smoker NA - NA Tobacco Use/Smoking Question Answer Notes Are you a: nonsmoker Additional Findings: Tobacco Non-User Current no n-smoker Alcohol Screen Question Answer Notes Did you have a drink containing alcohol in the p ast year? Yes Points 0 Interpretation Negative Problems Problem Type SNOMED Code ICD Code Onset Dates Problem Status W/U Status Risk Notes Problem Arthritis - Degenerative (719.97) Active confirmed Plan Of Treatment Pending Test Test Name Order Date X ray : Foot, right 2V 05/22/2011 X ray : Foot, right 2V 06/01/2011 X ray : Foot, right 2V 06/21/2011 X ray : Foot, right 2V 07/19/2011 X ray : Foot, right 2V 10/05/2011 X ray : Foot, right 2V 11/24/2013 X ray : Foot, right 2V 12/03/2013 X ray : Foot, right 2V 12/17/2013 X ray : Foot, right 2V 01/01/2014 X ray : Foot, right 2V 01/15/2014 X ray : Foot, right 2V 02/05/2014 X ray : Foot, right 3V 07/28/2013 21614- Debride <25 sq cm 01/01/2014 [id number] SKIN/TISSUE 01/15/2014 [id number] SKIN/TISSUE 01/22/2014 [id number] SKIN/TISSUE 02/05/2014 [id number] SKIN/TISSUE 02/19/2014 [id number]-KEVSHEL SKIN/TISSUE 03/05/2014 [id number] TENDON SHEATH/LIGAMENT 1 07/15/2010 L4386- Walking Boot 07/19/2011 L4386- Walking Boot 06/21/2011 L4386- Walking Boot 05/22/2011 L4386- Walking Boot 06/01/2011 Insurance Providers Payer Name Payer Address Payer Phone Subscriber Number Group Number Insured Name Patient Relationship to Insured Coverage Start Date Coverage End Date [facility] [address] [place] [address] [id number] Hipolito Thompson Self - patient is the insured Medical (General) History Medical History History ICD Code joint implants/screws mumps measles chicken pox cataracts Surgical History Surgery Date(Month/Year) appendectomy 1989 foot surgery oral surgery shoulder surgery 2008, 2003 Bun/Ht/MTPJ Resection right 11/20/2013
--- OUTSIDE RECORDS SUMMARY | 2025-01-07 09:02 | XMS_ITS ---
Author Name [facility] Organization Unknown Care Team Organization Name Specialty Phone Email Start Date End Da te [facility] Castillo Primary Care 04/25/2022 02/04/2024
[2025-01-07 11:15] LABS: Free T4 (Free Thyroxine) 0.97 ng/dL (0.71-1.85); Thyroid Stimulating Hormone 1.87 uIU/mL (0.32-4.0)
== END 2025-01-07 08:45 | disposition home or self-care (01) ==
LOC: HO.HMGCLDS 08:44
PROVIDERS: PCP Internal Medicine; Visit Provider Student in an Organized Health Care Education/Training Program
DX: E04.1 Nontoxic single thyroid nodule (principal)
CPT/HCPCS: 36415; 84439; 84443

== ENCOUNTER 2025-01-21 08:26 | Outpatient (REF) | payer MEDICARE, SELFPAY ==
--- NOTE | ~2025-01-21 | US_ITS ---
EXAMINATION: US THYROID HISTORY: E04.1 - Nontoxic single thyroid nodule TECHNIQUE: Real-time grayscale ultrasound imaging was performed and images were reviewed. COMPARISON: Comparison is made with the prior examination dated 01/10/2024. FINDINGS: SIZE: The right thyroid lobe measures 4.5 x 2.1 x 1.5 cm. The left thyroid lobe measures 3.7 x 1.9 x 1.0 cm. The isthmus measures 5 mm. FLOW: Flow to the gland is normal. ECHOGENICITY: The echotexture of the gland is homogeneous. NODULES: Again seen are nodules in the right thyroid lobe as described below: Nodule #: 1 Location: Mid to lower pole measuring 2.4 x 1.3 x 0.9 cm (previously 2.2 x 1.4 x 0.9 cm), and biopsied on 02/27/2024. Shape: Taller than wide (3 points) Margins: Smooth (0 points) Echotexture: Hypoechoic (2 points) Composition: Solid (2 points) Calcifications: None (0 points) Total points: 7 TIRADS: TR5: Highly suspicious. Nodule #: 2 Location: Lower pole of the right thyroid lobe measuring 7 x 6 x 6 mm (not seen previously). Shape: Wider than tall (0 points) Margins: Smooth (0 points) Echotexture: Hypoechoic (2 points) Composition: Solid (2 points) Calcifications: None (0 points) Total points: 4 TIRADS: TR4: Moderately suspicious. US/US thyroid IMPRESSION: Stable dominant nodule at the mid to lower pole of the right thyroid lobe, previously biopsied on 02/27/2024. ACR TI-RADS Guidelines TR1 (0 points): Benign. No follow-up or biopsy required TR2 (2 points): Not Suspicious. No biopsy or follow up indicated TR3 (3 points): Mildly Suspicious. FNA if >= 2.5 cm, Follow if >= 1.5 cm TR4 (4-6 points): Moderately Suspicious. FNA if >= 1.5 cm, Follow if >= 1.0 cm TR5 (>=7 points): Highly Suspicious. FNA if >= 1.0 cm, Follow if >= 0.5 cm Electronically signed by: Feliciano Garza MD 01/21/2025 09:17 AM EDT
--- OUTSIDE RECORDS SUMMARY | 2025-01-21 08:36 | XMS_ITS | Clinical Summary ---
Author Organization [address] Address [address] [facility] [place] [address] Phone Care Team Providers Care Director Sales Support Name Role Phone Charlie Castillo MD Primary Care Provider [phone] Allergies Active Allergy Reactions Criticality Noted Date Comments Gabapentin Cramps,Insomnia,Mus cular Issues,Night sweats,Other,Pain,P alpitations,Sleep Issues,Urinary Issues 11/22/2023 Strange dreams caused his body to thrash around Ibuprofen 01/07/2025 Other Reaction(s): severe constipation Lactose 07/13/2014 Diarrhea, abdominal cramping Linaclotide Diarrhea 09/03/2020 Nsaids (Non-Steroidal Anti-Inflammatory Drug) Other 08/31/2011 constipation Pollen Extracts 11/10/2020 Medications fluticasone propionate (FLONASE) 50 mcg/actuation nasal spray INSTILL 1 TO 2 SPRAYS INTO EACH NOSTRIL ONCE DAILY NEEDED 022 Active coenzyme Q-10 10 mg capsule Take 30 capsules (300 mg total) by mouth. Active clonazePAM (KlonoPIN) 0.5 mg tablet Take 1 tablet (0.5 mg total) by mouth. Active melatonin 10 mg tablet Take by mouth at bedtime. Active carbidopa-levod opa (SINEMET) 25-100 mg per tablet 1 tablet. 020 Active pmhqhglx-bebq-f acchar-dextrose 2.45 gram powder in packet Take by mouth 1 (one) time each day. Active polyethylene glycol (PEG) 17 gram/dose oral powder Take 17 g by mouth. Active cholecalciferol (VITAMIN D-3) 25 mcg (1,000 unit) tablet Take by mouth 1 (one) time each day. Active rOPINIRole (REQUIP) 0.5 mg tablet Take 1 tablet (0.5 mg total) by mouth 3 (three) times a day. Active atorvastatin (LIPITOR) 10 mg tablet TAKE 1 TABLET BY MOUTH 1 TIME EACH DAY. 90 tablet 1 025 Active docusate sodium (COLACE) 100 mg capsule TAKE 1 CAPSULE BY MOUTH TWICE A DAY 60 capsule 11 025 Active omeprazole (PriLOSEC) [address] capsuleIndicati ons:Heartburn TAKE 1 CAPSULE BY MOUTH EVERY DAY 90 capsule 1 025 Active EPINEPHrine (EPIPEN) 0.3 mg/0.3 mL injection USE DIRECTED FOR ANAPHYLAXIS , CALL 911 AFTER USE 025 Active magnesium oxide 400 mg magnesium capsule Take 400 mg by mouth. 025 Active MULTIVITAMIN ORAL Take 1 tablet by mouth. 007 Active calcium carbonate (OS-JOSE DAVID) 1,250 mg (500 mg elemental calcium) tablet Take 1 tablet (1,250 mg total) by mouth. Active vitamin D3-vitamin K2, MK4, 1,000-100 unit-mcg tablet Take 1 tablet by mouth 1 (one) time each day. 2024 Discontinued(D uplicate order) pediatric multivitamin tablet Take 1 split tablet by mouth 1 (one) time each day. 2024 Discontinued(D uplicate order) aspirin 81 mg EC tablet Take by mouth. 2024 Discontinued neomycin-polymy bennett-dexamethame thasone (POLYDEX) 3.5 mg/g-10,000 unit/g-0.1 % ointment APPLY 1/4 INCH STRIP TO BOTH EYES AT BEDTIME MAY USE UP TO THREE TIMES A DAY FOR COMFORT. 025 2024 Discontinued(D iscontinued by another clinician) cholecalciferol (Vitamin D3) 50 mcg (2,000 unit) capsule Take 1 capsule (2,000 Units total) by mouth 1 (one) time each day. 025 2024 Discontinued(D uplicate order) coenzyme Q-10 30 mg capsule Take 1 capsule (30 mg total) by mouth 1 (one) time each day. 025 2024 Discontinued(D uplicate order) aspirin 81 mg tablet Take 81 mg by mouth. 007 2024 Discontinued(D iscontinued by another clinician) DOCUSATE SODIUM ORAL 0 Refills, Maintenance, 07/24/24 2:15:00 PM EST, Partial fill upon patient request if the prescription is for a schedule II opioid drug. 025 2024 Discontinued(D uplicate order) Active Problems Problem Noted Date Diagnosed Date Thyroid nodule 09/10/2024 Overview (09/10/2024): discoverred by carotid US for evaluation by cardiology, follows with Dr. Jules Ashby at [facility] Myalgia 09/10/2024 Overview (09/10/2024): believed to be relaed to Parkinson's per neurology History of basal cell carcinoma 08/22/2023 History of meniscal tear 08/22/2023 History of colonic polyps 08/22/2023 Parkinson's disease ([facility] V24, [facility] V28) 0 07/09/2023 Memory deficit 12/27/2021 Overview (08/22/2023): [facility] following with neuropsych Osteoarthritis 11/16/2021 Overview (08/22/2023): Tricompartmental osteoarthritis on right knee seen on MRI 11/05/2021. Obstructive sleep apnea 10/08/2020 Overview (08/22/2023): [facility] Polysomnogram: Date 09/17/2020; Wt 177#; [...] couplets 2006- transient Lbbb with ETT at [facility]- negative for ischemia Echo 03/2009 Normal Mixed hyperlipidemia 11/04/2008 Vitiligo 12/14/2006 Hypoglycemia 07/05/2005 Lumbago 07/04/2005 Overview (08/22/2023): intermitt.back pain Chest pain, unspecified 07/04/2005 Overview (08/22/2023): nuclear stress test 10/04/04 negative subsequently negative cardiac cath 2011 Encounters Date Type Department Care Team Description 01/08/2025 8:40 AM EDT Office Visit Gastroenterology - [place] [address] [place] [address] Lupe Beebe, BERNARD Chronic constipation (Primary Dx); History of adenomatous polyp of colon from Last 3 Months Immunizations Name Administration Dates Next Due COVID-19 (Moderna/Spikevax) 12yo and older 05/24 Influenza Quadravalent, 0.5m l (Fluad) 65yo and older 05/24/2023 Influenza Quadravalent, 0.5m l (Fluzone High-dose) 65yo and older 04/05/2022,03/23/2021,02/18/2020 Influenza trivalent, 0.5mL ( Fluzone High-dose) 65yo and older 04/15/2024,05/24/2023 Influenza, Unspecified 04/13/2014 Pfizer (ages 12 & older) Bivalent, COVID-19 1212/2022 Pfizer SARS-CoV-2 COVID-19, mRNA, LNP-S, preservative free 08/03/2020,07/12/2020 Pneumococcal conjugate 13 va lent (Prevnar 13, PCV13) 2mo and older 08/03/2015 Pneumococcal polysaccharide 23 valent (Pneumovax 23) 2yo and older 08/11/2016 Td Tetanus diptheria (Tdvax) 7yo and older 10/15 Td, Unspecified 10/15/2002 Tdap Tetanus diptheria acell ular pertussis (Boostrix; Adacel) 7yo and older 03/28/2012 Zoster Live 03/24/2010 Zoster recombinant (Shingrix ) 19yo and older 12/01/2021,07/07/2021 Surgical History Surgery Date Site/Laterality Comments APPENDECTOMY PROCEDURE: HISTORICAL APPENDECTOMY SHOULDER SURGERY 2004 AND 2008 PROCEDURE: SD UNLISTED PROCEDURE SHOULDER; COMMENT: LEFT AND RIGHT - impingement symptoms OTHER SURGICAL HISTORY 1999 PROCEDURE: SD SIGMOIDOSCOPY FLX NDSC US XM CATARACT EXTRACTION PROCEDURE: HISTORICAL CATARACT REMOVAL COLONOSCOPY 05-09-2006 PROCEDURE: HISTORICAL COLONOSCOPY; COMMENT: Dr Jacobo - 1.5 cm sigmoid T.A. polyp; repeat in 3 years COLONOSCOPY 11-02-2009 PROCEDURE: HISTORICAL COLONOSCOPY; COMMENT: Dr Doran - normal; repeat in 5 years ESOPHAGOGASTRODUODENOSCOPY 12/14/2011 PROCEDURE: SD EGD TRANSORAL BIOPSY SINGLE/MULTIPLE; COMMENT: visually normal, [...] cancer D X:Family history of colon cancer Anemia Chronic constipation Colon polyp Food intolerance Hernia, internal Arthritis Hyperlipidemia Family History Medical History Relation Name Comments Arthritis Brother 1 Arthritis Father father Diabetes Father father Heart attack Father father Heart failure Father father Hyperlipidemia Father father Hypertension Father father Diabetes Mother mother Hyperlipidemia Mother mother Mental illness Mother mother Alzheimer's Arthritis Sister 1 sister Heart attack Sister 1 sister Hyperlipidemia Sister 1 sister Hypertension Sister 1 sister Stroke Sister 1 sister Coronary artery disease Sister 2 CABG Hypertension Sister 2 Colon cancer Uncle 1 5-6 maternal un cles and a cousin Pancreatic cancer Uncle 2 Relation Name Status Comments Brother 1 Alive htn cholestyero l CAD BLADDER CANCER Brother 2 Alive htn cholesterol Father father (Age 91) DM AND HEA RT CABG Mother mother (Age 89) DEMENTIA Sister 1 sister Alive cabg cholestero l Sister 2 (Age 2 childhood) Uncle 1 Uncle 2 Alive Social History Tobacco Use Types Packs/Day Years Used Date Smoking Tobacco: Never Smokeless Tobacco: Never Alcohol Use Standard Drinks/Week Comments Yes 0.8 (1 standard drink = 0.6 oz p ure alcohol) 1 glass per month Housing Instability Answer Date Recorde d Are [...] care for your loved ones. For example, children librarian or elderly care for an older adult? [...] Sign Reading Time Taken Comments Blood Pressure 106/64 01/08/2025 8:45 AM EDT Pulse 76 01/08/2025 8:45 AM EDT Temperature 36.1 C (97 F) 09/10/2024 9:32 AM EDT Respiratory Rate 20 09/10/2024 9:32 AM EDT Oxygen Saturation 98% 01/08/2025 8:45 AM EDT Inhaled Oxygen Concentration - - Weight 83.6 kg (184 lb 6.4 oz) 01/08/2025 8:45 A M EDT Height 182.9 cm (6') 01/08/2025 8:45 AM EDT Body Mass Index 25.01 01/08/2025 8:45 AM EDT Plan of Treatment Upcoming Encounters Date Type Department Care Team (Late st Contact Info) Description 04/13/2025 9:30 AM EDT Office Visit Adult Medicine [facility] [address] [place] [phone] Charlie Castillo MD [address] [place] [address] Health Maintenance Due Date Last Done Comments DTaP,Tdap,and Td Vaccines (4 - Td or Tdap) 03/28/2022 03/28/2012, 10/15/2002, 10/15/2002 Cholesterol Screening (Lipid Panel) 05/27/2022 Colorectal Cancer Screening: Stool Based Tests (FOBT/FIT) 05/27/2022 Hepatitis C Screening 05/27/2022 Medicare Annual Wellness Visit 05/27/2022 RSV Immunization Adult Patients (1 - 1-dose 75+ series) 2024 COVID-19 Vaccine (8 - Pfizer risk season) 2024 04/15/2024, 05/24/2023, 05/24/2023, Additional history exists Influenza Vaccine (#1) 2025 , 05/24/2023, 05/24/2023, Additional history exists Social Influencers of Health [...] Date/Time Associated Diagnosis Comments EXTERNAL CLINICAL LAB 01/07/2025 from Last 3 Months Results * External clinical lab (01/07/2025) Provider [facility] BLOOD ORDERABLES Fin al Result from Last 3 Months Insurance MEDICARE [facility] Care Teams Director Sales Support Relationship Specialty Start Date End Date Charlie Castillo MD [address] [place] [address] PCP - General Internal Medicine 05/13/21
--- OUTSIDE RECORDS SUMMARY | 2025-01-21 08:36 | XMS_ITS | Patient Health Record ---
[facility] [place] Address [address] [facility] [place] [address] Care Team Providers Care Account Planner Name Role Phone Hipolito Martin MD Primary Care Provider Ben Mcgraw Unavailable [phone] Allergies Allergen (clinical drug ingredient) Drug/Non Drug [...] X ray : Foot, right 3V 07/28/2013 13138- Debride <25 sq cm 01/01/2014 [id number] SKIN/TISSUE 01/15/2014 [id number] SKIN/TISSUE 01/22/2014 [id number] SKIN/TISSUE 02/05/2014 [id number] SKIN/TISSUE 02/19/2014 [id number] SKIN/TISSUE 03/05/2014 [id number],[id number] TENDON SHEATH/LIGAMENT 1 07/15/2010 L4386- Walking Boot 07/19/2011 L4386- Walking Boot 06/21/2011 L4386- Walking Boot 05/22/2011 L4386- Walking Boot 06/01/2011 Insurance Providers Payer Name Payer Address Payer Phone Subscriber Number Group Number Insured Name Patient Relationship to Insured Coverage Start Date Coverage End Date [facility] [address] [place] [address] [id number] Hipolito Thompson Self - patient is the insured Medical (General) History Medical History History ICD Code joint implants/screws mumps measles chicken pox cataracts Surgical History Surgery Date(Month/Year) appendectomy 1989 foot surgery oral surgery shoulder surgery 2008, 2003 Bun/Ht/MTPJ Resection right 11/20/2013
--- OUTSIDE RECORDS SUMMARY | 2025-01-21 08:36 | XMS_ITS | Encounter Summary ---
Author Organization [facility] Address [address] [place] [address] Care Team Providers Care Manager Freelance Name Role Phone Unavailable Primary Care Provider Unavailabl e Encounter Details Date Type Department Care Team (Late st Contact Info) Description 11/02/2021 Erroneous Encounter [facility] CONVERSION DEPT [address] [place] [address] Provider, MD Camila Social History [...]
== END 2025-01-21 08:27 | disposition home or self-care (01) ==
LOC: HO.HMGCX 08:26
PROVIDERS: PCP Internal Medicine; Visit Provider Student in an Organized Health Care Education/Training Program
DX: E04.1 Nontoxic single thyroid nodule (principal)
CPT/HCPCS: 76536

== ENCOUNTER → 2025-01-21 08:33 | Outpatient (BNV) | payer MEDICARE, SELFPAY | PROVIDERS: PCP Internal Medicine; Visit Provider Radiology Diagnostic Radiology | DX: E04.1 Nontoxic single thyroid nodule (principal) | CPT/HCPCS: 76536 ==

== ENCOUNTER 2025-02-10 07:29 | Outpatient (AMB) | payer MEDICARE, SELFPAY ==
[2025-02-10 07:31] VITALS: BP 132/68; PULSE 78; O2SAT 99; BMI 25.6
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
--- OUTSIDE RECORDS SUMMARY | 2025-02-10 07:32 | XMS_ITS | Clinical Summary ---
Author Organization [facility] Address [address] [place] [address] Care Team Providers Care Medical Laboratory Assistant Name Role Phone Unavailable Primary Care Provider [...]
--- OUTSIDE RECORDS SUMMARY | 2025-02-10 07:32 | XMS_ITS | Encounter Summary ---
Author Organization [facility] Address [address] [place] [address] Care Team Providers Care Typesetting Supervisor Name Role Phone Unavailable Primary Care Provider Unavailabl e Encounter Details Date Type Department Care Team (Late st Contact Info) Description 11/02/2021 Erroneous Encounter [facility] CONVERSION DEPT [address] [place] [address] Provider, MD Camila Social History [...]
--- OUTSIDE RECORDS SUMMARY | 2025-02-10 07:33 | XMS_ITS | Patient Health Record ---
[facility] [place] Address [address] [facility] [place] [address] Care Team Providers Care General Supervisor Name Role Phone Hipolito Martin MD Primary Care Provider Ben Mcgraw Unavailable [phone] Allergies Allergen (clinical drug ingredient) Drug/Non Drug [...] Date X ray : Foot, right 2V 07/19/2011 X ray : Foot, right 2V 01/01/2014 X ray : Foot, right 2V 02/05/2014 X ray : Foot, right 2V 01/15/2014 X ray : Foot, right 2V 05/22/2011 X ray : Foot, right 2V 06/01/2011 X ray : Foot, right 2V 10/05/2011 X ray : Foot, right 2V 11/24/2013 X ray : Foot, right 2V 12/17/2013 X ray : Foot, right 2V 06/21/2011 X ray : Foot, right 2V 12/03/2013 X ray : Foot, right 3V 07/28/2013 76777- Debride <25 sq cm 01/01/2014 [id number] SKIN/TISSUE 02/19/2014 [id number] SKIN/TISSUE 03/05/2014 [id number] SKIN/TISSUE 02/05/2014 [id number] SKIN/TISSUE 01/22/2014 [id number] SKIN/TISSUE 01/15/2014 [id number] TENDON SHEATH/LIGAMENT 1 07/15/2010 L4386- Walking Boot 06/01/2011 L4386- Walking Boot 05/22/2011 L4386- Walking Boot 06/21/2011 L4386- Walking Boot 07/19/2011 Insurance Providers Payer Name Payer Address Payer Phone Subscriber Number Group Number Insured Name Patient Relationship to Insured Coverage Start Date Coverage End Date [facility] [address] [place] [address] [id number] Hipolito Thompson Self - patient is the insured Medical (General) History Medical History History ICD Code joint implants/screws mumps measles chicken pox cataracts Surgical History Surgery Date(Month/Year) appendectomy 1989 foot surgery oral surgery shoulder surgery 2008, 2003 Bun/Ht/MTPJ Resection right 11/20/2013
--- OUTSIDE RECORDS SUMMARY | 2025-02-10 07:33 | XMS_ITS | Encounter Summary ---
Author Organization [facility] Address [address] [place] [address] Care Team Providers Care Home Health Lpn Name Role Phone Unavailable Primary Care Provider Unavailabl e Encounter Details Date Type Department Care Team (Late st Contact Info) Description 09/08/2021 Erroneous Encounter [facility] CONVERSION DEPT [address] [place] [address] Provider, MD Camila Social History [...]
--- OUTSIDE RECORDS SUMMARY | 2025-02-10 07:34 | XMS_ITS | Clinical Summary ---
Author Organization [address] Address [address] [facility] [place] [address] Phone Care Team Providers Care Fat Purification Worker Name Role Phone Charlie Castillo MD Primary Care Provider [phone] Allergies Active Allergy Reactions Criticality Noted Date [...] mg per tablet 1 tablet. 0 Active hnuhrbmo-ummd-y acchar-dextrose 2.45 gram powder in packet Take [...] 5 Active omeprazole (PriLOSEC) [address] capsuleIndicati ons:Heartburn TAKE 1 CAPSULE BY MOUTH EVERY DAY 90 capsule 1 5 Active EPINEPHrine (EPIPEN) 0.3 mg/0.3 mL injection USE DIRECTED FOR ANAPHYLAXIS , CALL 911 AFTER USE 5 Active magnesium oxide 400 mg magnesium capsule Take 400 mg by mouth. 5 Active MULTIVITAMIN ORAL Take 1 tablet by mouth. 7 Active calcium carbonate (OS-JOSE DAVID) 1,250 mg (500 mg elemental calcium) tablet Take 1 tablet (1,250 mg total) by mouth. Active Active Problems Problem Noted Date Diagnosed Date Thyroid nodule 09/10/2024 Overview (09/10/2024): discoverred by carotid US for evaluation by cardiology, follows with Dr. Jules Ashby at [facility] Myalgia 09/10/2024 Overview (09/10/2024): believed to [...] 11/05/2021. Obstructive sleep apnea 10/08/2020 Overview (08/22/2023): [facility] Polysomnogram: Date 09/17/2020; Wt [...] couplets 2006- transient Lbbb with ETT at [facility]- negative for ischemia Echo 03/2009 Normal Mixed hyperlipidemia 11/04/2008 Vitiligo 12/14/2006 Hypoglycemia 07/05/2005 Lumbago 07/04/2005 Overview (08/22/2023): intermitt.back pain Chest pain, unspecified 07/04/2005 Overview (08/22/2023): nuclear stress test 10/04/04 negative subsequently negative cardiac cath 2011 Encounters Date Type Department Care Team Description 01/08/2025 8:40 AM EDT Office Visit Gastroenterology - [place] [address] [place] [address] Lupe Beebe, BERNARD Chronic constipation [...] APPENDECTOMY SHOULDER SURGERY 2004 AND 2008 PROCEDURE: IA UNLISTED PROCEDURE SHOULDER; COMMENT: LEFT AND RIGHT - impingement symptoms OTHER SURGICAL HISTORY 1999 PROCEDURE: IA SIGMOIDOSCOPY FLX NDSC US XM CATARACT EXTRACTION PROCEDURE: HISTORICAL CATARACT REMOVAL COLONOSCOPY 05-09-2006 PROCEDURE: HISTORICAL COLONOSCOPY; COMMENT: Dr Jacobo - 1.5 cm sigmoid T.A. polyp; repeat in 3 years COLONOSCOPY 11-02-2009 PROCEDURE: HISTORICAL COLONOSCOPY; COMMENT: Dr Doran - normal; repeat in 5 years ESOPHAGOGASTRODUODENOSCOPY 12/14/2011 PROCEDURE: IA EGD TRANSORAL BIOPSY SINGLE/MULTIPLE; COMMENT: visually normal, [...] for your loved ones. For example, child care leader or elderly care for an older adult? [...] 9:30 AM EDT [place] [facility] [address] [place] [address] Charlie Castillo MD [address] [place] [address] Health Maintenance Due Date Last Done Comments [...] Months Results * External clinical lab (01/07/2025) us Provider [facility] BLOOD ORDERABLES Fin al Result from Last 3 Months Insurance MEDICARE [facility] Care Teams Fat Purification Worker Relationship Specialty Start Date End Date Charlie Castillo MD [address] [place] [address] [place] [address] PCP - General Internal Medicine 05/13/21
== END 2025-02-10 07:52 | disposition home or self-care (01) ==
LOC: HO.ENCR 07:30
PROVIDERS: PCP Internal Medicine; Visit Provider Student in an Organized Health Care Education/Training Program
DX: E04.1 Nontoxic single thyroid nodule (principal)
CPT/HCPCS: 99213

== ENCOUNTER → 2025-02-10 07:29 | Outpatient (BNVA) | payer MEDICARE, SELFPAY | PROVIDERS: PCP Internal Medicine; Visit Provider Student in an Organized Health Care Education/Training Program | DX: E04.1 Nontoxic single thyroid nodule (principal) | CPT/HCPCS: 99212 ==

== ENCOUNTER 2025-04-23 07:56 | Outpatient (AMB) | payer MEDICARE, SELFPAY ==
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
[2025-04-23 08:00] VITALS: BP 130/84; PULSE 84; O2SAT 98; BMI 25.7
--- OUTSIDE RECORDS SUMMARY | 2025-04-23 08:01 | XMS_ITS | Clinical Summary ---
Author Organization [address] Address [address] [facility] [place] [address] Phone Care Team Providers Care Cisco Consultant Name Role Phone Charlie Castillo MD Primary Care Provider [phone] Allergies Active Allergy Reactions Criticality Noted Date [...] 1 tablet (0.5 mg total) by mouth. Prescribed in Neurology Active melatonin 10 mg tablet Take by mouth at bedtime. Active carbidopa-levo dopa (SINEMET) 25-100 mg per tablet 1 tablet. 03/16/20 20 Active psyllium-sucr- sacchar-dextro se 2.45 gram powder in packet Take by mouth 1 (one) time each day. Active polyethylene glycol (PEG) 17 gram/dose oral powder Take 17 g by mouth. Active cholecalcifero l (VITAMIN D-3) 25 mcg (1,000 unit) tablet Take by mouth 1 (one) time each day. Active rOPINIRole (REQUIP) 0.5 mg tablet Take 1 tablet (0.5 mg total) by mouth 3 (three) times a day. Active docusate sodium (COLACE) 100 mg capsule TAKE 1 CAPSULE BY MOUTH TWICE A DAY 60 capsule 11 11/13/19 25 Active omeprazole (PriLOSEC) [address] capsuleIndicat ions:Heartburn TAKE 1 CAPSULE BY MOUTH EVERY DAY 90 capsule 1 12/02/19 25 Active EPINEPHrine (EPIPEN) 0.3 mg/0.3 mL injection USE DIRECTED FOR ANAPHYLAXIS , CALL 911 AFTER USE 11/20/19 25 Active magnesium oxide 400 mg magnesium capsule Take 400 mg by mouth. 07/24/19 25 Active MULTIVITAMIN ORAL Take 1 tablet by mouth. 12/08/19 07 Active calcium carbonate (OS-JOSE DAVID) 1,250 mg (500 mg elemental calcium) tablet Take 1 tablet (1,250 mg total) by mouth. Active atorvastatin (LIPITOR) 10 mg tablet TAKE 1 TABLET BY MOUTH 1 TIME EACH DAY. 90 tablet 1 04/21/20 25 Active atorvastatin (LIPITOR) 10 mg tablet TAKE 1 TABLET BY MOUTH 1 TIME EACH DAY. 90 tablet 1 10/22/19 25 025 Discontinued Active Problems Problem Noted Date Diagnosed Date Spinal stenosis of lumbar region 04/13/2025 Overview (04/13/2025): decompression L3, L4, disc surgery as well, DR. Kolb, 01/11/2025 Thyroid nodule 09/10/2024 Overview (09/10/2024): discoverred by carotid US for evaluation by cardiology, follows with Symone, Dr. Vicente at [facility] Myalgvt 09/10/2024 Overview (09/10/2024): believed to be relaed to Parkinson's per neurology History of basal cell carcinoma 08/22/2023 History of meniscal tear 08/22/2023 History of colonic polyps 08/22/2023 Parkinson's disease ([facility] V24, [facility] V28) 0 07/09/2023 Memory deficit 12/27/2021 Overview (08/22/2023): [facility] following with neuropsych Osteoarthritis 11/16/2021 Overview (08/22/2023): Tricompartmental osteoarthritis on right knee seen on MRI 11/05/2021. Obstructive sleep apnea 10/08/2020 Overview (08/22/2023): [facility] Polysomnogram: Date 09/17/2020; Wt [...] couplets 2006- transient Lbbb with ETT at [facility]- negative for ischemia Echo 03/2009 Normal Mixed hyperlipidemia 11/04/2008 Vitiligo 12/14/2006 Hypoglycemia 07/05/2005 Lumbago 07/04/2005 Overview (08/22/2023): intermitt.back pain Chest pain, unspecified 07/04/2005 Overview (08/22/2023): nuclear stress test 10/04/04 negative subsequently negative cardiac cath 2011 Encounters Date Type Department Care Team Description 04/14/2025 Results Follow-Up [address] [phone] Charlie Castillo MD 04/13/2025 10:07 AM EDT - 04/13/2025 11:59 PM EDT Hospital Encounter [address] [phone] Acute pain of left knee Discharge Disposition: Home or Self Care 04/13/2025 9:30 AM EDT Office Visit [address] [phone] Charlie Castillo MD Acute pain of left knee (Primary Dx); Parkinson's disease without dyskinesia, unspecified whether manifestations fluctuate (CMS/HCC V24, CMS/HCC V28); Stress at home; Mixed hyperlipidemia; Thyroid nodule; Elevated blood pressure reading; Spinal stenosis of lumbar region, unspecified whether neurogenic claudication present from Last 3 Months Immunizations Immunization Administration Dates Next Due COVID-19 (Moderna/Spikevax) 12yo and older 05/24 Influenza Quadravalent, 0.5m l (Fluad) 65yo and older 05/24/2023 Influenza Quadravalent, 0.5m l (Fluzone High-dose) 65yo and older 04/05/2022,03/23/2021,02/18/2020 Influenza trivalent, 0.5mL ( Fluzone High-dose) 65yo and older 04/15/2024,05/24/2023 Influenza, Unspecified 04/13/2014 Pfizer (ages 12 & older) Bivalent, COVID-19 /0 12/2022 Pfizer SARS-CoV-2 COVID-19, mRNA, LNP-S, preservative [...] APPENDECTOMY SHOULDER SURGERY 2004 AND 2008 PROCEDURE: KS UNLISTED PROCEDURE SHOULDER; COMMENT: LEFT AND RIGHT - impingement symptoms OTHER SURGICAL HISTORY 1999 PROCEDURE: KS SIGMOIDOSCOPY FLX NDSC US XM CATARACT EXTRACTION PROCEDURE: HISTORICAL CATARACT REMOVAL COLONOSCOPY 05-09-2006 PROCEDURE: HISTORICAL COLONOSCOPY; COMMENT: Dr Jacobo - 1.5 cm sigmoid T.A. polyp; repeat in 3 years COLONOSCOPY 11-02-2009 PROCEDURE: HISTORICAL COLONOSCOPY; COMMENT: Dr Doran - normal; repeat in 5 years ESOPHAGOGASTRODUODENOSCOPY 12/14/2011 PROCEDURE: KS EGD TRANSORAL BIOPSY SINGLE/MULTIPLE; COMMENT: visually normal, [...] do you feel lonely or isolated from ose around you? Never 09/04/2024 Food Risk [...] care for your loved ones. For example, summer child caregiver or elderly care for an older adult? [...] Date Recorded What is your living situation? Unrecognized valu e 09/04/2024 Sex and Gender Information Value Date Recorded Sex Assigned at Male 07/21/2024 9:28 AM EST Legal Sex Male 12:20 AM EST Gender Identity Male 07/21/2024 9:28 AM EST Sexual Orientation Straight 07/21/2024 9: 28 AM EST Obstetrics History Last Filed Vital Signs Vital Sign Reading Time Taken Comments Blood Pressure 146/71 04/13/2025 9:31 AM EDT Pulse 86 04/13/2025 9:31 AM EDT Temperature 36.4 C (97.5 F) 04/13/2025 9:31 AM EDT Respiratory Rate 14 04/13/2025 9:31 AM EDT Oxygen Saturation 98% 01/08/2025 8:45 AM EDT Inhaled Oxygen Concentration - - Weight 87.1 kg (192 lb) 04/13/2025 9:31 AM EDT Height 182.9 cm (6') 04/13/2025 9:31 AM EDT Body Mass Index 26.04 04/13/2025 9:31 AM EDT Plan of Treatment Upcoming Encounters Date Type Department Care Team (Late st Contact Info) Description 04/23/2025 10:00 AM EST Consult Orthopedics - [address] [address] Greg Grier PA [address] [place] [address] 08/31/2025 9:45 AM EDT Office Visit [facility] - [address] [phone] Charlie Castillo MD [address] [place], [place] [phone] Health Maintenance Due Date Last Done Comments DTaP,Tdap,and Td Vaccines (4 - Td or Tdap) 03/28/2022 03/28/2012, 10/15/2002, 10/15/2002 Cholesterol Screening (Lipid Panel) 05/27/2022 Colorectal Cancer Screening: Stool Based Tests (FOBT/FIT) 05/27/2022 Hepatitis C Screening 05/27/2022 Medicare Annual Wellness Visit 05/27/2022 RSV Immunization Adult Patients (1 - 1-dose 75+ series) 2024 COVID-19 Vaccine (8 - Pfizer risk season) 2025 04/15/2024, 05/24/2023, 05/24/2023, Additional history exists Influenza [...] Procedure Name Priority Date/Time Associated Diagnosis Comments US HEAD NECK SOFT TISSUE Routine 04/14/2025 11:02 AM EDT XR KNEE 4+ VIEWS LEFT Routine 04/13/2025 10:19 AM EDT Acute pain of left knee from Last 3 Months Results * US Head Neck Soft Tissue (04/14/2025 11:02 AM EDT) Anatomical Region Laterality Modality Head and Neck Ultrasound us Historical Provider MD TANG US PROCEDURES Final R esult * XR Knee 4+ Views Left (04/13/2025 10:19 AM EDT) Anatomical Region Laterality Modality Lower Extremities, Knee Left Radiogra phic Imaging 04/13/2025 10:5 9 PM EDT Narrative 04/13/2025 10:59 PM EDT Left knee, 4 views. History pain. There is a small effusion. There is no fractures, dislocations or destructive lesions. Alignment is maintained. CONCLUSIONS: Small effusion. Otherwise unremarkable examination. -------- FINAL REPORT -------- Dictated By: Allyson Reynolds Dictated Date: 04/13/2025 22:59 ET Assigned Physician: Allyson Reynolds Reviewed and Electronically Signed By: Allyson Reynolds Signed Date: 04/13/2025 22:59 ET Workstation ID: [id number] Transcribed By: Self Edit Transcribed Date: 04/13/2025 22:59 ET Procedure Note Allyson Reynolds MD - 04/13/2025 Left knee, 4 views. History pain. There is a small effusion. There is no fractures, dislocations ordestructive lesions. Alignment is maintained. CONCLUSIONS: Small effusion. Otherwise unremarkable examination. -------- FINAL REPORT -------- Dictated By: Allyson Reynolds Dictated Date: 04/13/2025 22:59 ET Assigned Physician: Allyson Reynolds Reviewed and Electronically Signed By: Allyson Reynolds Signed Date: 04/13/2025 22:59 ET Workstation ID: [id number] Transcribed By: Self Edit Transcribed Date: 04/13/2025 22:59 ET Charlie Castillo MD IMG XR PROCEDURES Final Result from Last 3 Months Insurance MEDICARE [facility] Care Teams Cisco Consultant Relationship Specialty Start Date End Date Charlie Castillo MD [address] [place] [address] PCP - General Internal Medicine 05/13/21
--- OUTSIDE RECORDS SUMMARY | 2025-04-23 08:01 | XMS_ITS | Encounter Summary ---
Author [facility] [place] [address] Care Team Providers Care Case Assembler Name Role Phone Charlie Castilol MD Primary Care Provider [phone] Encounter Details Date Type Department Care Team (Late st Contact Info) Description 04/14/2025 Results Follow-Up Adult Medicine [facility] [address] [place] [address] Charlie Castillo MD [address] [place], [place] Social History Tobacco Use Types Packs/Day Years [...] care for your loved ones. For example, childbirth educator or elderly care for an older adult? [...] Orientation Straight 07/21/2024 9: 28 AM EST documented as of this encounter Plan of Treatment Upcoming Encounters Date Type Department Care Team (Late st Contact Info) Description 04/23/2025 10:00 AM EST Consult Orthopedics - [place] [address] [place] [address] Greg Grier PA [address] [place] [phone] 08/31/2025 9:45 AM EDT Office Visit Adult Medicine [facility] [address] [place] [address] Charlie Castillo MD [address] [place] [address] documented as of this encounter Visit Diagnoses Not on filedocumented in this encounter Additional Health Concerns Assessment Noted Time PHQ-9 Depression Total Score: 0 09/05/19 25 8:33 AM EDT documented as of this encounter Care Teams Case Assembler Relationship Specialty Start Date End Date Charlie Castillo MD [address] [place] [address] PCP - General Internal Medicine 05/13/21 documented as of this encounter
--- OUTSIDE RECORDS SUMMARY | 2025-04-23 08:01 | XMS_ITS | Patient Health Record ---
Author [facility] [place] [place] Address [address] [place] [address] Care Team Providers Care Ice Skating Teacher Name Role Phone Hipolito Martin MD Primary Care Provider Ben Greene Unavailable [phone] Allergies Allergen (clinical drug ingredient) Drug/Non Drug [...] Problem Status W/U Status Risk Notes Problem Disorder of joint of ankle and/or foot (320472012) Arthritis - Degenerative (719.97) Active confirmed Plan [...] X ray : Foot, right 3V 07/28/2013 71620- Debride <25 sq cm 01/01/2014 [id number] SKIN/TISSUE 01/15/2014 [id number] SKIN/TISSUE 01/22/2014 [id number] SKIN/TISSUE 02/05/2014 [id number] SKIN/TISSUE 02/19/2014 [id number] SKIN/TISSUE 03/05/2014 [id number],[id number] TENDON SHEATH/LIGAMENT 1 07/15/2010 L4386- Walking Boot 07/19/2011 L4386- Walking Boot 06/21/2011 L4386- Walking Boot 05/22/2011 L4386- Walking Boot 06/01/2011 Insurance Providers Payer Name Payer Address Payer Phone Subscriber Number Group Number Insured Name Patient Relationship to Insured Coverage Start Date Coverage End Date [facility] [address] [place] [address] [id number] Hipolito Thompson Self - patient is the insured Medical (General) History Medical History History ICD Code joint implants/screws mumps measles chicken pox cataracts Surgical History Surgery Date(Month/Year) appendectomy 1989 foot surgery oral surgery shoulder surgery 2008, 2003 Bun/Ht/MTPJ Resection right 11/20/2013
== END 2025-04-23 08:44 | disposition home or self-care (01) ==
LOC: HO.HSMS 07:56
PROVIDERS: PCP Internal Medicine; Visit Provider Psychiatry & Neurology Neurology
DX: G20.A1 Parkinson's disease without dyskinesia, without mention of fluctuations (principal); R13.10 Dysphagia, unspecified; R41.89 Other symptoms and signs involving cognitive functions and awareness; G47.52 REM sleep behavior disorder; G62.9 Polyneuropathy, unspecified
CPT/HCPCS: 99214; G2211

== ENCOUNTER → 2025-04-23 07:56 | Outpatient (BNVA) | payer MEDICARE, SELFPAY | PROVIDERS: PCP Internal Medicine; Visit Provider Psychiatry & Neurology Neurology | DX: G20.A1 Parkinson's disease without dyskinesia, without mention of fluctuations (principal); M79.10 Myalgia, unspecified site; R13.10 Dysphagia, unspecified; F09 Unspecified mental disorder due to known physiological condition; G47.52 REM sleep behavior disorder; G62.9 Polyneuropathy, unspecified; Z79.899 Other long term (current) drug therapy | CPT/HCPCS: 99212 ==